=== PATIENT | female | born 1985 | race Caucasian/White ===

== ENCOUNTER 2016-09-28 05:39 | Emergency (ER) | payer OTHER ==
[~2016-09-28] VITALS: Ht 165.1 cm; Wt 47.7 kg
[~2016-09-28 05:39] MED LIST: ACYC400T2 PO; LORA1TAB PO; NORE1PAT7 TD; OXYC5TAB72 PO; PROM25TA14 PO; RIZA5TAB34 PO
[2016-09-28 05:41] VITALS: BP 122/79; PULSE 96; RESP 22
[2016-09-28] MEDS ORDERED: Ondansetron 2 mg/mL 2 mL Inj IVPUSH ONE (05:45)
[2016-09-28] MEDS ORDERED: Haloperidol 5 mg/mL Inj IVPUSH ONE (05:45)
[2016-09-28] MEDS ORDERED: 0.9% Sodium Chloride 1,000 ML IV ONE ×2 (05:45→06:35)
[2016-09-28] MEDS: Dexamethasone 10 mg/mL Inj IVPUSH ONE ×2 (06:03→06:45)
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
[2016-09-28 06:12] VITALS: PULSE 96; O2SAT 100
[2016-09-28] MEDS ORDERED: Promethazine Inj 50 MG in 0.9% Sodium Chloride-Pha MIX 100 ML IV ONE (06:30)
[2016-09-28] MEDS ORDERED: Acetaminophen IV 1,000 MG in IV Premix 1 EACH IV ONE (06:30)
[2016-09-28 08:03] VITALS: BP 100/58; PULSE 78
== END 2016-09-28 07:55 | disposition home or self-care (01) ==
LOC: SED 05:39
DX: G43.901 Migraine, unspecified, not intractable, with status migrainosus (principal); Z88.2 Allergy status to sulfonamides; Z88.8 Allergy status to other drugs, medicaments and biological substances
CPT/HCPCS: 82948; 96361; 96374; 96375; 99284; J0131; J1100; J1885; J2405; J7030

== ENCOUNTER 2016-12-15 16:29 | Inpatient (IN) | payer MEDICAID, OTHER ==
[~2016-12-15] VITALS: Ht 165.1 cm; Wt 47.0 kg
[~2016-12-15 16:29] MED LIST changes: +OXYC-530 PO; -OXYC5TAB72 PO
[2016-12-15 16:43] VITALS: BP 125/62; PULSE 81; RESP 18; O2SAT 100
[2016-12-15] MEDS ORDERED: LORazepam 2 mg Tablet ONE (17:40)
[2016-12-15] MEDS ORDERED: Haloperidol 5 mg/mL Inj IM ONE (17:55)
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
[2016-12-15 20:31] LABS: BASOPHILS % (AUTO) 0.1 % (0-3); EOSINOPHILS % (AUTO) 0.4 % (0-5); MONOCYTES % (AUTO) 8.5 % (4-12); Mean Corpuscular Hemoglobin 29.7 pg (27.0-35.0); Mean Corpuscular Volume 88.5 fL (81-100); NEUTROPHILS % (AUTO) 66.8 % (40-74); Platelet Count 235 bil/L (150-400)
[2016-12-15 21:21] LABS: APPEARANCE,URINE CLEAR (CLEAR,HAZY); COLOR,URINE YELLOW (YELLOW); OCCULT BLOOD,URINE NEGATIVE (NEGATIVE); UROBILINOGEN,URINE NORMAL (NORMAL)
[2016-12-15 22:19] VITALS: BP 100/69; PULSE 87; RESP 14; O2SAT 98
[2016-12-16 02:49] VITALS: BP 92/58; PULSE 78; RESP 12; O2SAT 97
[2016-12-16 06:46] VITALS: BP 102/60; PULSE 74; RESP 16; O2SAT 99
[2016-12-16] MEDS ORDERED: HYDROmorphone 0.5 mg/0.5 mL iSecure Syringe IVPUSH ONE (07:25)
[2016-12-16] MEDS ORDERED: Alum-Mag Hydrox-Simeth 30 mL Suspension PO ONE (07:25)
--- NOTE | 2016-12-16 08:14 | DRSVH ---
PROCEDURE: X-RAY CHEST ONE VIEW, PORTABLE ([id number]) INDICATIONS: altered mental status TECHNIQUE: One view of the chest was acquired. COMPARISON: [facility], , CHEST 1VW (PORTABLE), 11/29/2011, 10:31. FINDINGS: Surgical changes and devices: None. Lungs and pleura: No pleural effusions or pneumothorax. Lungs are clear. Mediastinum: Mediastinal contours appear normal. Heart size is normal. Bones and chest wall: No suspicious bony lesions. Overlying soft tissues appear unremarkable. IMPRESSION: No acute cardiopulmonary disease. Dictated by: Arabella Jarrell M.D. on 12/16/2016 at 8:12 Approved by: Arabella Jarrell M.D. on 12/16/2016 at 8:12
--- NOTE | 2016-12-16 08:44 | DRSVH ---
PROCEDURE: CT BRAIN WITHOUT CONTRAST ([id number]) INDICATIONS: altered mental status TECHNIQUE: Noncontrast 4.5 mm thick angled axial sections acquired from the foramen magnum to the vertex, with c oronal reformats. COMPARISON: [facility], CT, BRAIN W/O CONTRAST, 03/03/2013, 20:15. FINDINGS: Image quality: Excellent. CSF spaces: Basal cisterns are patent. No extra-axial fluid collections. Ventricles are normal in size and shape. Brain: No midline shift. No intracranial masses or hemorrhage. Das-white matter interface is norm al. Skull and face: Calvarium and visualized facial bones are intact, without suspicious lesions. Sinuses: Visualized sinuses and mastoids are clear. IMPRESSION: No acute intracranial adenopathy. No significant discrepancy with the night coordinator radiology preliminary report. Dictated by: Arabella Jarrell M.D. on 12/16/2016 at 8:42 Approved by: Arabella Jarrell M.D. on 12/16/2016 at 8:43
[2016-12-16] MEDS ORDERED: LEVE500T3 PO (10:06)
[2016-12-16] MEDS ORDERED: LEVO1TAB63 PO (10:06)
[2016-12-16] MEDS ORDERED: TRAZ-115 PO (10:06)
[2016-12-16] MEDS ORDERED: LORazepam 1 mg Tablet PO ONE (12:05)
[2016-12-16 14:35] VITALS: BP 113/68; PULSE 123; RESP 19; O2SAT 98
[2016-12-16] MEDS ORDERED: LORazepam 2 mg Tablet PO ONE (19:30)
[2016-12-16 21:34] VITALS: BP 111/68; PULSE 112; RESP 16; O2SAT 99
[2016-12-17 06:14] VITALS: BP 102/71; PULSE 88; RESP 20; O2SAT 98
[2016-12-17 12:28] VITALS: BP 117/85; PULSE 137; RESP 18; O2SAT 97
[2016-12-17] MEDS ORDERED: Phenytoin 100 mg ER Capsule PO ONE (12:35)
[2016-12-17 12:45] VITALS: PULSE 115; RESP 15; O2SAT 100
[2016-12-17] MEDS ORDERED: LORazepam 2 mg Tablet PO ONE (12:50)
[2016-12-17 13:02] VITALS: BP 117/85; PULSE 115; RESP 15; O2SAT 100
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
--- NOTE | 2016-12-17 17:40 | NUR ---
S Day Shift Pt admitted to the unit at approx 13:05. Pt unable to complete the admission process due to anxiety. Pt spends most of the shift isolating/resting in her room. Pt appears tearful, anxious. Pt more active on the unit in the evening, and appears slightly more interactive with staff and peers. Pt remains tearful and anxious throughout the shift. Pt has eaten approx 30% of dinner at this time (pt is in the process of eating at this time).
[2016-12-17] MEDS: LORazepam 1 mg Tablet PO PRN (20:05)
--- NOTE | 2016-12-17 20:54 | NUR ---
behavior/mood: pt. very tearful, crying asking if i talked to her mom, replied yes ans she would be back tomorrow to visit. Pt. given ativan and ambien, pt. came out of her room, drawing and eating a snack. mood still flat and depressed but pt. no longer crying, focused on drawing and writing in her journal.
[2016-12-18] MEDS: LORazepam 1 mg Tablet PO PRN ×2 (12:37→19:23)
[2016-12-18] MEDS ORDERED: Phenytoin 100 mg ER Capsule PO SCH (14:30)
--- NOTE | 2016-12-18 14:41 | NUR ---
Nursing 0700 to 1500 Sugar has been in her bed all shift except for meals and walking down the [place] to use the phone at 1230. She lies in bed with the pillow over her head. When approached by headline writer, she was compliant with taking pills as offered, with walking down [place] to lunch, but didn't verbalize anything to headline writer. She has a very distressed facial expression and appearance is unkempt. Sugar signed release of info form and headline writer listened to mom on phone. Mom told headline writer that Sugar was afraid that when anxious and fearful, Sugar doesn't talk. Sugar was offered and accepted Ativan 1 mg at 1230. At 1330, she did not answer when asked if it had been calming for her. A: Distressed. Mute at times. (Did talk to mother on phone and to [facility]), Anxious. ?Psychotic P: Continue to assess. Addendum: 12/18/16 at 1448 by DEVIKA COX RN Amended: Links added.
--- NOTE | 2016-12-18 15:13 | HP ---
[address] [address] HISTORY AND PHYSICAL PATIENT: ALANIS BECERRA : 1985 MR#: [id number] ADMIT: 12/17/2016 JOB ID: [id number] DATE OF SERVICE: 12/18/2016 IDENTIFICATION: The patient is a 31-year-old, white female with a history of anxiety, depression, psychosis and PTSD, who presented to the emergency department with her mother complaining of altered mental status. She was admitted on an involuntary basis for grave disability. HISTORY OF PRESENT ILLNESS: The patient presents today for evaluation and treatment of depression and altered mental status. I met with her for a 60-minute evaluation and reviewed course and records kept by [facility]. Client's main issue is major depression. Co-occurring issues are fairly significant marijuana habit, as well as two recent seizures on December 15, 2016. Per client's mother, she has had altered mental status for the past two weeks with poor sleep, interest, energy, poor appetite and a loss of 15 pounds. She has not been complaining of suicide or homicide but has been increasingly unable to attend to her ADLs and is tending to isolate in her room. She is tending to avoid talking or social situations. She is she is appearing highly agitated with exaggerated startle response and appears to be experiencing intrusive recall of previous trauma. Here on the unit, she has been intermittently tearful, labile, and agitated. Her thoughts are extremely disorganized and nonlinear. She is a very poor historian and responds mutely to most attempts to engage or establish dialogue. she did tell her mother that she was paranoid and feeling that people were trying to kill the family. Client has previous psychiatric admission here in 2011. Her presentation is almost identical and she was treated with a combination of Depakote, Thorazine, and Klonopin. She was in [facility] in 2009 for depression, and was transferred to [facility] after [facility] for continued six weeks of care. At that time, she had psychosis, auditory hallucinations, and paranoia. PAST MEDICAL HISTORY: MEDICATIONS: Client stopped all her meds. She was only on control pills. ALLERGIES: SULFA. ILLNESSES: Two seizures, December 15, 2016. This was per mother's report. Her mother reported that she has been acting unusual since the seizures. She was treated at [facility] for this seizure and was placed on Keppra. FAMILY MEDICAL HISTORY: Client is unable to respond. PAST PSYCHIATRIC HISTORY: Client had four different involuntary psychiatric admissions, first in 2009 at [facility], then [facility]. Most recently, [facility] 2011. When she came to the [facility] in 2011 she was on Xanax, Vicodin, and THC. PAST PSYCHOSOCIAL HISTORY: Client could not participate. She, in the past, has reported daily use of THC. PHYSICAL EXAM: Reviewed from ED and essentially normal. Vital signs within normal limits. LABS: CT December 16, negative. UA normal. UPT negative. Liver, electrolytes, thyroid normal. CBC normal. UDS positive for THC. MENTAL STATUS: Thin, frail. Poor eye contact. Disheveled. Behavior: Lethargic and withdrawn. Attitude: Aloof and detached. Speech: Mute or one-word, nearly unintelligible responses. Mood: Dysphoric, tearful. Affect: Labile, high intensity. Thought process: Unable to relate a coherent history. Does not appear to be responding to internal stimuli. Very concrete and restricted thought process, characteristics mostly for poverty of thought. Thought content: Poverty of thought. Refuses to answer questions about suicide or auditory hallucinations. Client refused to participate in orientation or cognitive exam. Insight and judgment markedly impaired. Impulse control: Highly contained yet unable to handle impulses of fear. Reality testing severely impaired. Competence to handle current stressors: Currently being overwhelmed. IMPRESSION: The patient is a 31-year-old, white female, who had has had four different inpatient admissions for depression and psychosis. Her presentation now is almost identical to her presentation in 2012, where she presented with psychotic symptoms, mute, and auditory hallucinations. She was given a diagnosis of posttraumatic stress disorder and major depression. I believe these are appropriate. She has stopped all medications and is in a severely labile state with disorganized and nonlinear thought. Client's SSI apparently was stopped for concern about seizures. I will restart her on Depakote, Klonopin, and Zyprexa. Will try to get more information about the seizure. I would like to restart an antidepressant, but concerned about potential seizure issues, and as the client cannot talk, will try to get a family meeting with the mother. I am unclear about client's past trauma history and client is unable to participate. Client will be encouraged to refrain from recreational drugs while taking psychiatric medications after discharge. DIAGNOSIS: [place] I. 1. Major depressive disorder with psychosis. 2. Posttraumatic stress disorder. 3. Cannabis abuse. [place] II. Defer. [place] III. Rule out recent seizure x2 reported by mother on December 15, 2016. [place] IV. Unknown. [place] V. 25 PLAN: Recommend client be admitted to our unit, be provided with a high degree of safety through the structure and safety she will be provided, as well as the active adult engagement. We will have her participate in one-to-one unit and group activities, hoping to improve coping skills, reality based thinking, and coming up with a treatment plan for after discharge. We will start the client on Zyprexa 5 h.s., Klonopin 0.5 b.i.d., and Depakote ER 500 h.s. Will continue trazodone at 50 h.s. and consider reinstitution of Prozac, once I can get more information about recent reported seizures. Client is on 72-hour involuntary treatment hold. Will go to court on Sunday for a 14-day MR most likely.
--- NOTE | 2016-12-18 15:24 | NUR ---
Telephone Directory Deliverer/Counselor S/O: Patient did not verbally respond to this underwriter mortgage loan, and was tearful and unresponsive when spoken to. A: Patient has kept to her room for most of the day. P: Follow care plan and coordinate with outpatient providers.
--- NOTE | 2016-12-18 18:36 | NUR ---
Obs Dayshift Pt spent most of the day in bed, only getting up for a phone to call mom or meals. Pt is very tearful, anxious. Appears very fearful, sad. Pt is talking very little, and perseveration. Pt did sign an MARNIE for mom, who states that pt will cheek meds. Pt is polite, and often found crying in bed under her blankets. Ok ADL's, Good meals
[2016-12-18] MEDS: Divalproex (QD) 500 mg ER24 Tablet PO SCH (20:47)
--- NOTE | 2016-12-18 23:00 | NUR ---
NURSING NOTE [id number] Mood: "I feel so alone" *cries* Affect: tearful, anxious, despondent Behavior: pt. mostly isolating to room this shift but did come out for brief periods to sit and watch TV or sit at the table in the DR. Minimal interaction w/peers. Often crying in her room. Pt. given much reassurance from staff this evening. Pt. expressed she feels that her loved ones have lost trust in her and that they are disappointed in her. Thought processes: fearful; pt. expressing she is "terrified" about things at home but unable to articulate to this keno writer/runner what she is fearful of except to say "if roles were reversed you would be scared too". Shook her head when asked if she was suicidal. Did not answer when asked about AH/VH.
--- NOTE | 2016-12-19 05:48 | NUR ---
Nursing Note Carpentry Specialist 11pm to 7am Pt asleep at start of shift, was found in her bathroom at approx. 0315 crying and reported to staff that she was scared because she is having trouble making decisions and feels confused. Pt able to work through this and go back to sleep without further intervention Monitored pt with 15 minute face checks for safety, location and accountability
[2016-12-19] MEDS ORDERED: ETHINYL ESTRADIOL PO SCH (08:30)
[2016-12-19] MEDS ORDERED: LEVONORGESTREL PO SCH (08:30)
--- NOTE | 2016-12-19 12:19 | PCM.PNPSY ---
Subjective Date of Service Dec 19, 2016 Subjective I spent 30 minutes both reviewing treatment plan with our clinical team, interviewing the patient and providing supportive/educational psychotherapy. I spent more than 50% of the time counseling the patient. I reviewed the treatment plan with the patient and discussed options available including the potential risks, benefits and side effects. Sugar reports a continued struggle to maintain thought organization and mood stability. Staff reports that she has been isolating and participating poorly in one-to-one unit and group activities. She slept 9 hours and responds to all my questions with a mute blank stare about depression [place] or psychosis or symptoms review. She denies medication side effects. She was not able to identify her medications and what they were used to treat. Current Medications Current Medications Clonazepam 0.5 mg BID PO Last administered on 12/19/16 09:23; Admin Dose 0.5 MG ; Start 12/18/16 at 12:55 Divalproex Sodium 500 mg Q24@2030 PO Last administered on 12/18/16 20:47; Admin Dose 500 MG; Start 12/18/16 at 20:30 Fluoxetine HCl 20 mg DAILY PO Last administered on 12/18/16 13:55; Admin Dose 20 MG; Start 12/18/16 at 13:55; Stop 12/18/16 at 14:04; Status DC Lorazepam 1-2MG Q4 PRN PO Last administered on 12/18/16 19:23; Admin Dose 1 MG ; Start 12/17/16 at 19:45 Lorazepam 2 mg ONCE ONCE PO Last administered on 12/17/16 12:56; Admin Dose 2 MG; Start 12/17/16 at 12:50; Stop 12/17/16 at 12:51; Status DC Olanzapine 5 mg DAILY@2030 PO Last administered on 12/18/16 20:47; Admin Dose 5 MG; Start 12/18/16 at 20:30 Phenytoin 300 mg ONCE ONCE PO Last administered on 12/17/16 12:56; Admin Dose 300 MG; Start 12/17/16 at 12:35; Stop 12/17/16 at 12:36; Status DC Trazodone HCl 50 mg HS PO Last administered on 12/18/16 20:47; Admin Dose 50 MG ; Start 12/18/16 at 21:00 Zolpidem Tartrate 10 mg HS PO Last administered on 12/18/16t 20:47; Admin Dose 10 MG; Start 12/17/16 at 21:00 Mental Status Exam Appearance: Unkept, Disheveled Attitude: Other (mute) Affect: Restricted, Labile Mood: Dysthymic, Fearful Thought Process/Associations: Other (poverty of thought) Speech Production: Mumbled, Muter Thought Content: Perseveration Consciousness: Lethargic Orientation: Unable to assess Memory: Untestable Estimate Intellectual Function: Unable to assess Attention/Concentration & Cogn: Unable to assess Insight: Unable to assess Judgement: Unable to assess Result Diagram: 12/15/16202412/15/162024 Mental Health Plan The patient is a 31-year-old, white female, who had has had four different inpatient admissions for depression and psychosis. Her presentation now is almost identical to her presentation in 2011, where she presented with psychotic symptoms, mute, and auditory hallucinations. She was given a diagnosis of posttraumatic stress disorder and major depression. I believe these are appropriate. She has stopped all medications and is in a severely labile state with disorganized and nonlinear thought. Client's SSRI apparently was stopped for concern about seizures. I will restart her on Depakote, Klonopin, and Zyprexa. Will try to get more information about the seizure. I would like to restart an antidepressant, but concerned about potential seizure issues, and as the client cannot talk, will try to get a family meeting with the mother. I am unclear about client's past trauma history and client is unable to participate in the history process At this time. [place] I. 1. Major depressive disorder with psychosis. 2. Posttraumatic stress disorder. 3. Cannabis abuse. [place] II. Defer. [place] III. Rule out recent seizure x2 reported by mother on December 15, 2016. [place] IV. Unknown. [place] V. 25 Treatments Patient is being provided with a high degree of safety through our unit structure and active adult engagement provided by our mental health professionals, mental health technicians, psychiatric nurses and myself. We are focusing on developing improved coping skills and identifying stressors that may have led to current episode. We will attempt to: * Integrate into therapeutic groups, milieu and individual therapy. * Maintain in a closely monitored and structured unit * Provide low-stimulation environment * Obtain collateral data to assist in treatment planning * Assess degree of lability of affect and impulse control * Complete safety plan * Decrease frequency of relapse and need for re-hospitalization * Denies thoughts of harm to self and/or others * Establish a consistent sleep pattern * Medication effective in stabilization of mood and/or thought process * Reduce the risk of imminent harm to self and/or others by providing a safe environment * Tolerates medication without side effects Patient will be on the following psychiatric medications: PLAN: Zyprexa 5 h.s., Klonopin 0.5 b.i.d. Depakote ER 500 h.s. Trazodone at 50 h.s. Consider reinstitution of Prozac, once I can get more information about recent reported seizures. Education: Educate patient about recreational drug use as an etiology Educate about metabolic etiologies related to obesity Patient's legal status Patient is on a 72 involuntary treatment hold. Patient will be given the opportunity to talk to her rand sewer and the juvenile court judge Anticipated number of hospital days to achieve above goals:10 Disposition: Home Lior Velarde MD Dec 19, 2016 12:19
[2016-12-19 12:26] VITALS: BP 131/68; PULSE 92; RESP 16
--- NOTE | 2016-12-19 14:13 | NUR ---
Temperature Inspector/Counselor S/O: Patient does not respond verbally to questions and remains mute. Stares blankly. A: Patient has remained in her bed for most of the day. No interactions with other patients or staff. P: Follow care plan and coordinate with outpatient providers.
--- NOTE | 2016-12-19 14:26 | NUR ---
Nursing 7a-3p Pt resting in bed until mid morning looking tense/anxious/tearful. Delayed response, vague speech, frightened look. She took her morning medication with encouragement afterwards she did get up and ate some of her breakfast. She talked with her mother on the phone briefly. Pt spent the majority of the shift resting in bed covered using her blanket and pillow to cover her ears and head. No self harm statements or behavior. Cooperative with care. Pt having difficulty articulating her feelings or needs.
[2016-12-19] MEDS: LORazepam 1 mg Tablet PO PRN (15:44)
--- NOTE | 2016-12-19 16:06 | NUR ---
Obs Dayshift Pt continues to talk very little, perseveration, anxiety, scared. Pt is very tearful, in bed w/ blankets over her head most of the day. Pt does get up for meals, and phone calls to mom. Pt is polite, does request meds appropriately, does not engage w/ peers and very little w/ staff. Not able to participate in any activity on the unit. Ok ADL's, Ok/Good meals
[2016-12-19] MEDS: Divalproex (QD) 500 mg ER24 Tablet PO SCH (20:34)
--- NOTE | 2016-12-19 22:03 | NUR ---
NURSING NOTE [id number] Mood: "I... don't know" *begins to cry* Affect: distraught, frightened, tearful at times Behavior: pt. isolated to room for much of the shift but did come out a few times to watch TV, eat meals, and to visit w/her mother. On occasion she would hover by the NS or med room appearing lost and unable to state her needs to staff. Pt. given 1 mg Ativan PRN for anxiety @ 15:40 Thought processes: pt. is mostly restricted in her responses; staring at this assembly instructions writer and unable to answer most questions. Pt. unable to confirm or deny suicidality/AH/VH. Appears profoundly depressed and paranoid.
--- NOTE | 2016-12-20 05:46 | NUR ---
Nursing Note Superintendent [employer] 11pm-7am Patient was in bed at start of shift. She was noted to be in bed asleep at 2245 remains asleep at current time with 7.25+ hours. Pt monitored q 15 minutes for safety, location and accountability.
--- NOTE | 2016-12-20 11:24 | NUR ---
Nursing: Pt continues extremely anxious, lost, scared. She was out for snacks and had a visit from her mom who was in court with her, where she was given up to 14 day hold. It was very difficult to for her to let her mother go. She is not willing to engage at this time.Still mostly isolating in her room in bed buried under her blanket. Ate 25 % of both meals.
[2016-12-20 12:26] VITALS: BP 107/76; PULSE 89
--- NOTE | 2016-12-20 13:27 | PCM.PNPSY ---
Subjective Date of Service Dec 20, 2016 Subjective I spent 60 minutes both reviewing treatment plan with our clinical team, interviewing the patient and providing supportive/educational psychotherapy. I spent more than 50% of the time counseling the patient. I reviewed the treatment plan with the patient and discussed options available including the potential risks, benefits and side effects. I prepared and testified in court for 14 day SATS [place] continues to struggle to maintain thought organization and mood stability. Staff reports that she has been isolating and participating poorly in one-to- one unit and group activities. She slept 7 hours and responds to all my questions with a mute blank stare about depression [place] or psychosis or symptoms review. She denies medication side effects. She was not able to identify her medications and what they were used to treat. Current Medications Current Medications Divalproex Sodium 500 mg Q24@2030 PO Last administered on 12/19/16 20:34; Admin Dose 500 MG; Start 12/18/16 at 20:30 Fluoxetine HCl 20 mg DAILY PO Last administered on 12/18/16 13:55; Admin Dose 20 MG; Start 12/18/16 at 13:55; Stop 12/18/16 at 14:04; Status DC Olanzapine 5 mg DAILY@2030 PO Last administered on 12/19/16 20:34; Admin Dose 5 MG; Start 12/18/16 at 20:30 Trazodone HCl 50 mg HS PO Last administered on 12/19/16 20:34; Admin Dose 50 MG ; Start 12/18/16 at 21:00 Mental Status Exam Vital Signs Vital Signs Date Time Temp Pulse Resp B/P Pulse Ox O2 Delivery O2 Flow Rate FiO2 12/20/16 12:26 36.3 89 107/76 Appearance: Unkept, Disheveled Attitude: Other (mute) Affect: Restricted, Labile Mood: Dysthymic, Fearful Thought Process/Associations: Other (poverty of thought) Speech Production: Mumbled, Muter Thought Content: Perseveration Consciousness: Lethargic Orientation: Unable to assess Memory: Untestable Estimate Intellectual Function: Unable to assess Attention/Concentration & Cogn: Unable to assess Insight: Unable to assess Judgement: Unable to assess Result Diagram: 12/15/16202412/15/162024 Mental Health Plan The patient is a 31-year-old, white female, who had has had four different inpatient admissions for depression and psychosis. Her presentation now is almost identical to her presentation in 2012, where she presented with psychotic symptoms, mute, and auditory hallucinations. She was given a diagnosis of posttraumatic stress disorder and major depression. I believe these are appropriate. She had stopped all medications and was in a severely labile state with disorganized and nonlinear thought. Client's SSRI apparently was stopped for concern about seizures. She has been restarted her on Depakote, Klonopin, and Zyprexa. The reported seizure was by mom 2 days captain [employer]. A neurology consult MRI and CT were done at [facility] and recommended keppra and outpt f/u. She could not tolerate keppra and is currently on depakote w/ no szs activity since admission. I am unclear about client's past trauma history and client is unable to participate in the history process, our casemanager will contact mother for more history. [place] I. 1. Major depressive disorder with psychosis. 2. Posttraumatic stress disorder. 3. Cannabis abuse. [place] II. Defer. [place] III. Rule out recent seizure x2 reported by mother on December 15, 2016. [place] IV. Unknown. [place] V. 25 Treatments Patient is being provided with a high degree of safety through our unit structure and active adult engagement provided by our mental health professionals, mental health technicians, psychiatric nurses and myself. We are focusing on developing improved coping skills and identifying stressors that may have led to current episode. We will attempt to: * Integrate into therapeutic groups, milieu and individual therapy. * Maintain in a closely monitored and structured unit * Provide low-stimulation environment * Obtain collateral data to assist in treatment planning * Assess degree of lability of affect and impulse control * Complete safety plan * Decrease frequency of relapse and need for re-hospitalization * Denies thoughts of harm to self and/or others * Establish a consistent sleep pattern * Medication effective in stabilization of mood and/or thought process * Reduce the risk of imminent harm to self and/or others by providing a safe environment * Tolerates medication without side effects * Patient will be on the following psychiatric medications: Zyprexa 5 h.s., Klonopin 0.5 b.i.d. Depakote ER 500 h.s. Trazodone at 50 h.s. Consider reinstitution of Prozac, once I can get more information about recent reported seizures. Education: Educate patient about recreational drug use as an etiology Educate about metabolic etiologies related to obesity Patient's legal status Patient is on a 14 day MR involuntary treatment hold filed 12/20/16 Anticipated number of hospital days to achieve above goals:10 Disposition: Home Lior Velarde MD Dec 20, 2016 13:27 Lior Velarde MD Dec 20, 2016 13:27
--- NOTE | 2016-12-20 17:21 | NUR ---
Observations 0700 - 1900 Pt affect and mood was anxious, flat, emotional, lost, sullen and isolative. Pt was in her room and in bed most of the shift. Pt was pleasant, polite and cooperative when approached but very timid. Pt maintained behavior throughout the shift. Pt continues to be unsocial and keeps to herself when out of her room. Pt attended meals in D.R. and ate 25% of breakfast, 25% of lunch and 100% of dinner. Pt ate a snack. Pt had court and visited with mom for about 15 minutes afterwards. Pt Pt was observed every 15 minutes through the shift as ordered.
--- NOTE | 2016-12-20 18:58 | NUR ---
NURSING NOTE [id number] Mood: "I don't know" Affect: tearful, fearful Behavior: pt. visible off and on in milieu, sitting w/peers but not interacting w/them, has a fixed look of despair on her face, visited w/her mother. Ate 100% of dinner. Thought processes: pt. is mostly mute and restricted when this promotion writer assessed her; pt. unable to answer to whether she has AH/VH. Pt. shrugged and shook her head when asked if she has SI. Very anxious and becomes increasingly anxious when confronted w/questions. Addendum: 12/20/16 at 2024 by NANO COVARRUBIAS RN At HS med pass, the pt. required much reassurance to take her PO meds. Once she finally placed them in her mouth, it was apparent that she hadn't yet swallowed and pt. tried to walk away from this promotion writer when this promotion writer asked to see her mouth and continued to walk in circles around the unit trying to get away from this promotion writer and hiding the pills in her mouth. After 5 mins of following the pt. to ensure she did not spit them out, the pt. began to gag and drank a sip of water and swallowed them all, and opened her mouth to show she had indeed swallowed them. Pt's room will be locked for 45 mins to ensure she does not induce emesis. Addendum: 12/20/16 at 2126 by NANO COVARRUBIAS RN At 2100 the pt. was discovered hiding on the floor behind a chair in the [facility]FANS room with the lights off. She was crying and rambling, talking about the fact that she believes medications are "not healthy for my body", that "my door was locked and you are punishing me" and "my family hates me" and "I'm a fucking idiot, I'm dog shit" and also rambled about politics and "people in power". Took much reassurance and coaxing to get pt. to get up off the floor and walk back to her room. Will continue to monitor.
[2016-12-20] MEDS: Divalproex (QD) 500 mg ER24 Tablet PO SCH (20:30)
[2016-12-21 08:30] VITALS: BP 109/80; PULSE 96; RESP 18
[2016-12-21] MEDS: LORazepam 1 mg Tablet PO PRN ×2 (11:12→16:53)
--- NOTE | 2016-12-21 13:42 | PCM.PNPSY ---
Subjective Date of Service Dec 21, 2016 Subjective I spent 20 minutes both reviewing treatment plan with our clinical team, interviewing the patient and providing supportive/educational psychotherapy. I spent less than 50% of the time counseling the patient. I reviewed the treatment plan with the patient and discussed options available including the potential risks, benefits and side effects. Sugar continues to struggle to maintain thought organization and mood stability. Staff reports that she has been isolating and participating poorly in one-to- one unit and group activities. She slept 9 hours and responds to all my questions with a mute blank stare about depression l[place] or psychosis or symptoms review. She denies medication side effects. Mental Status Exam Vital Signs Vital Signs Date Time Temp Pulse Resp B/P Pulse Ox O2 Delivery O2 Flow Rate FiO2 12/21/16 08:30 36.0 96 18 109/80 Appearance: Unkept, Disheveled Attitude: Other (mute) Affect: Restricted, Labile Mood: Dysthymic, Fearful Thought Process/Associations: Other (poverty of thought) Speech Production: Mumbled, Muter Thought Content: Perseveration Consciousness: Lethargic Orientation: Unable to assess Memory: Untestable Estimate Intellectual Function: Unable to assess Attention/Concentration & Cogn: Unable to assess Insight: Unable to assess Judgement: Unable to assess Result Diagram: 12/15/16202412/15/162024 Mental Health Plan The patient is a 31-year-old, white female, who had has had four different inpatient admissions for depression and psychosis. Her presentation now is almost identical to her presentation in 2011, where she presented with psychotic symptoms, mute, and auditory hallucinations. She was given a diagnosis of posttraumatic stress disorder and major depression. I believe these are appropriate. She had stopped all medications and was in a severely labile state with disorganized and nonlinear thought. Client's SSRI apparently was stopped for concern about seizures. She has been restarted her on Depakote, Klonopin, and Zyprexa. 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 A neurology consult MRI and CT were done at [facility] and recommended keppra and outpt f/u. She could not tolerate keppra and is currently on depakote w/ no szs activity since admission. After reviewing her hospitalization and seizure workup [place] and talking to her mother About her state of dehydration emaciation and lack of sleep no longer believe that An SSRI is contraindicated. I am restarting Prozac 20 mg per day. I am unclear about client's past trauma history and client is unable to participate in the history process, our casemanager will contact mother for more history. Columbia Columbia I. 1. Major depressive disorder with psychosis. 2. Posttraumatic stress disorder. 3. Cannabis abuse. Columbia II. Defer. Columbia III. Rule out recent seizure x2 reported by mother on December 15, 2016. Columbia IV. Unknown. Columbia V. 25 Treatments Patient is being provided with a high degree of safety through our unit structure and active adult engagement provided by our mental health professionals, mental health technicians, psychiatric nurses and myself. We are focusing on developing improved coping skills and identifying stressors that may have led to current episode. We will attempt to: * Integrate into therapeutic groups, milieu and individual therapy. * Maintain in a closely monitored and structured unit * Provide low-stimulation environment * Obtain collateral data to assist in treatment planning * Assess degree of lability of affect and impulse control * Complete safety plan * Decrease frequency of relapse and need for re-hospitalization * Denies thoughts of harm to self and/or others * Establish a consistent sleep pattern * Medication effective in stabilization of mood and/or thought process * Reduce the risk of imminent harm to self and/or others by providing a safe environment * Tolerates medication without side effects * Patient will be on the following psychiatric medications: Start Prozac 20 mg every morning Zyprexa 5 h.s., Klonopin 0.5 b.i.d. Depakote ER 500 h.s. Trazodone at 50 h.s. Patient's legal status Patient is on a 14 day involuntary treatment hold filed 12/20/16 Anticipated number of hospital days to achieve above goals:10 Disposition: Home Lior Velarde MD Dec 21, 2016 13:42
--- NOTE | 2016-12-21 14:41 | NUR ---
NURSE NOTE DAY Mood: Unable to assess. Pt unable to answer questions at this time. Affect: Anxious, tearful at times. Thought Process/Content: Paucity of speech. Unable to confirm or deny SI, HI; AH,VH. Behavior: Up for breakfast. On phone with mother in morning, appeared anxious after. PRN/NURS: Eating meals. PRN lorazepam around 1000.
--- NOTE | 2016-12-21 16:00 | NUR ---
Observations 0700 to 1900 Pt did not attend community meeting. Pt did not attend recreational activities. Pt ate a snack. Pt showered. Pt is observed using the phone much of time. Pt appears highly anxious and has a constant tortured look on face and appears internally preoccupied. Pt maintained behavioral control. Breakfast: 75%. Lunch: 100%. Staff completed 15 min close observations as ordered. Addendum: 12/21/16 at 1824 by [facility] This typewriter mechanic observed pt crying. Met with pt in room in which pt disclosed suicidal ideation "I should have done it along time ago, everyone would be happy. I know what I need to do." Pt also discussed painful memories of being bullied in grade school, feelings of fear and pressure by advent. "Are you ? In your denomination is your able to have more than one ?" Pt's bizarre statements were verbally reported to pt's RN.
--- NOTE | 2016-12-21 17:48 | NUR ---
Transition Assistant/Counselor: S/O: Patient slept 8.25 hours last night per staff. Patient was mute during the interview and would not speak. A: Patient is uncooperative, unkept, labile, restricted affect, fearful, lethargic, unable to assess insight and judgment. P: Follow the care plan, coordinate with out-patient providers, monitor behavior.
[2016-12-21] MEDS: Divalproex (QD) 500 mg ER24 Tablet PO SCH (21:01)
--- NOTE | 2016-12-21 23:02 | NUR ---
NURSE NOTE EVENING SHIFT [id number]: Pt has mostly been in her room during the shift, coming out to color and eat dinner. Pt has been tearful and sullen and given PRN Ativan about 1700, but continued to be tearful. Pt appeared to enjoy her mother visiting. Pt went back to her room and spent most of the evening there. Pt questioned if she really needed her HS meds but took them after talking with staff. Pt monitored q15 min. for safety, location and accountability.
--- NOTE | 2016-12-22 04:04 | NUR ---
nursing, nights, 11-7 s/o- has appeared to sleep after 2200 during q 15 minute assessments. a- no apparent distress. p- monitor behavior/emotional state, quality, times and amount of sleep, use and effect of medication. kimberlee
[2016-12-22 11:02] VITALS: BP 106/76; PULSE 83; RESP 16
--- NOTE | 2016-12-22 12:37 | PCM.PNPSY ---
Subjective Date of Service Dec 22, 2016 Subjective I spent 30 minutes both reviewing treatment plan with our clinical team, interviewing the patient and providing supportive/educational psychotherapy. I spent more than 50% of the time counseling the patient as today she was able to tolerate my interview. She was able to respond with normal speech and articulation. I reviewed the treatment plan with the patient and discussed options available including the potential risks, benefits and side effects. Sugar continues to struggle to maintain thought organization and mood stability. Staff reports that she continues to isolate and is participating poorly in one -to-one unit and group activities. She slept 8hours and is now responding to my questions with appropriate responses. She reports having severe dysphoria but denied auditory hallucinations. She states she continues to feel highly anxious and somewhat confused. She denies medication side effects Current Medications Current Medications Fluoxetine HCl 20 mg DAILY PO Last administered on 12/22/16t 09:13; Admin Dose 20 MG; Start 12/22/16 at 08:30 Mental Status Exam Appearance: Unkept, Disheveled Attitude: Cooperative Affect: Restricted, Labile Mood: Dysthymic, Fearful Thought Process/Associations: Other (poverty of thought) Speech Production: Soft, Mumbled Speech Rate: Lags/Latency Thought Content: Perseveration Consciousness: Lethargic Orientation: Unable to assess Memory: Untestable Estimate Intellectual Function: Unable to assess Attention/Concentration & Cogn: Impaired Cognitive Testing Method: Abstract Reasoning during interview, Proverb interpretation, Serial computations, Spelling forward & backward Insight: Limited Judgement: Limited Mental Health Plan The patient is a 31-year-old, white female, who had has had four different inpatient admissions for depression and psychosis. Her presentation now is almost identical to her presentation in 2012, where she presented with psychotic symptoms, mute, and auditory hallucinations. She was given a diagnosis of posttraumatic stress disorder and major depression. I believe these are appropriate. She had stopped all medications and was in a severely labile state with disorganized and nonlinear thought. Client's SSRI apparently was stopped for concern about seizures. She was initially restarted on Depakote, Klonopin, and Zyprexa. The reported seizure was by mom 2 days group captain. A neurology consult MRI and CT were done at [facility] and recommended keppra and outpt f/u. She could not tolerate keppra and is currently on depakote w/ no szs activity since admission. After reviewing her hospitalization and seizure workup [place] and talking to her mother About her state of dehydration emaciation and lack of sleep I no longer believe that an SSRI is contraindicated. I placed her on Prozac 20 mg per day 12/21/2016. Franklin Franklin I. 1. Major depressive disorder with psychosis. 2. Posttraumatic stress disorder. 3. Cannabis abuse. Franklin II. Defer. Franklin III. Rule out recent seizure x2 reported by mother on December 15, 2016. Franklin IV. Unknown. Franklin V. 30 Treatments Patient is being provided with a high degree of safety through our unit structure and active adult engagement provided by our mental health professionals, mental health technicians, psychiatric nurses and myself. We are focusing on developing improved coping skills and identifying stressors that may have led to current episode. We will attempt to: * Integrate into therapeutic groups, milieu and individual therapy. * Maintain in a closely monitored and structured unit * Provide low-stimulation environment * Obtain collateral data to assist in treatment planning * Assess degree of lability of affect and impulse control * Complete safety plan * Decrease frequency of relapse and need for re-hospitalization * Denies thoughts of harm to self and/or others * Establish a consistent sleep pattern * Medication effective in stabilization of mood and/or thought process * Reduce the risk of imminent harm to self and/or others by providing a safe environment * Tolerates medication without side effects * Patient will be on the following psychiatric medications: Prozac 20 mg every morning Zyprexa 5 h.s., Klonopin 0.5 b.i.d. Depakote ER 500 h.s. Trazodone at 50 h.s. Patient's legal status Patient is on a 14 day involuntary treatment hold filed 12/20/16 Anticipated number of additional hospital days to achieve above goals: Patient will likely need another week to maintain gains and set up appropriate treatment Disposition: Lior Salinas MD Dec 22, 2016 12:37
[2016-12-22] MEDS: LORazepam 1 mg Tablet PO PRN (15:26)
--- NOTE | 2016-12-22 16:02 | NUR ---
Observations 0700 - 1900 Pt affect and mood was anxious, flat, emotional, lost, sullen and isolative. Pt was in her room and in bed most of the morning. Pt was pleasant, polite and cooperative when approached but very timid. Pt was tearful most of the day and would pairer substandard the hallway. Pt maintained behavior throughout the shift. Pt continues to be unsocial and keeps to herself when out of her room. Pt took a shower. Pt attended meals in [facility]. and ate 50% of breakfast, 75% of lunch. Pt ate a snack. Pt was observed every 15 minutes through the shift as ordered.
--- NOTE | 2016-12-22 18:40 | NUR ---
Nursing Notes [id number] S: "The staff already knows I am stupid". "Nothing you can do will help". O: Patient tearful and crying. Kept refusing medications for anxiety, finally agreed to take. Refused to talk to staff. Would not rate anxiety/depression/hallucinations or suicidal/homicidal ideation. A: Emotionally labile and tearful, sobbing at times. Appears to be frightened or paranoid. P: Monitor for safety and response to treatment. Follow plan of care.
--- NOTE | 2016-12-22 19:52 | NUR ---
Snath Handle Assembler/Counselor: S: "I;m just resting." O: Patient slept 8 hours last night per staff. Patient was awake and answering questions during interview. She denies S/I and H/I. She also denies auditory and visual hallucinations. A: Patient is cooperative, unkept, disheveled, restricted affect, labile, fearful, lethargic, limited insight, limited judgment. P: Follow the care plan, coordinate with out-patient providers.
[2016-12-22] MEDS: Divalproex (QD) 500 mg ER24 Tablet PO SCH (20:34)
--- NOTE | 2016-12-23 06:36 | NUR ---
Nursing Note Education Administrator 7pm to 7am Pt tearful from 7pm-11pm. Pt was guarded on approach, unwilling to process other than to say I am worried about my famiy . Reports depression and anxiety but when asked to rate replied I dont know. Pt denies AVH or SI. Took HS meds and went to sleep at 2200. Pt slept 8 hours. Monitor with q 15 minute face checks for safety, location and accountability
[2016-12-23 09:30] VITALS: BP 108/72; PULSE 92; RESP 16
--- NOTE | 2016-12-23 15:02 | PCM.PNPSY ---
Subjective Date of Service Dec 23, 2016 Subjective The patient reportedly has been only minimally interactive with staff but has been talking more. Today she states, "I am okay I guess." She appears anxious but only states she is feeling "a little bit anxious." We discussed whether she felt restarting fluoxetine was a good or bad idea but the patient had no response. The patient also discussed having the 20 pound weight loss prior to admission but could not say over a long period of time. She denied having any concerns about her body appearing abnormally overweight (patient is quite thin) . We discussed the need for follow-up lab work in the morning to assess her Depakote level. Sleep: 8 hours Appetite: "Trying to eat better." Suicidal and homicidal ideation: Denies Auditory hallucinations/Visual hallucinations: Denies Other Psychotic Symptoms: Social isolation, apparent thought blocking Anxiety: "A little bit" Depression: "Some" Current Medications Current Medications Fluoxetine HCl 20 mg DAILY PO Last administered on 12/23/16t 09:28; Admin Dose 20 MG; Start 12/22/16 at 08:30 Mental Status Exam Vital Signs Vital Signs Date Time Temp Pulse Resp B/P Pulse Ox O2 Delivery O2 Flow Rate FiO2 12/23/16 09:30 36.2 92 16 108/72 Appearance: Unkept Attitude: Cooperative, Guarded Behavior: Overtly anxious Affect: Restricted Mood: Dysthymic, Fearful Thought Process/Associations: Other (poverty of speech) Speech Production: Soft, Mumbled Speech Rate: Lags/Latency Speech Articulation: Other (mild dysarthria) Thought Content: Perseveration Danger to Self/Suicidal Ideati: None Danger to Others: None Hallucinations: Auditory (Denies), Visual (Denies) Consciousness: Lethargic Orientation: Person, Place, Situation Memory: Short Term Memory (Impaired) Estimate Intellectual Function: Average Basis for IQ estimate: Word use/vocabulary, Educational history Attention/Concentration & Cogn: Impaired Insight: Limited Judgement: Limited Mental Health Plan The patient is a 31-year-old, with four prior inpatient hospitalizations for depression and psychosis. Her current presentation is similar to her presentation in 2011, where she presented as mute and with auditory hallucinations. She has a prior diagnosis of posttraumatic stress disorder and major depression. At the time of admission, the patient had stopped all medications and was labile with disorganized thoughts. Client's SSRI apparently was stopped for concern about seizures. There was a report of a seizure 2 days prior to admission. The patient had a neurology consult, MRI, and CT scan at [facility] and was recommended to start Keppra however she could not tolerate this medication and was placed on Depakote. She has remained seizure-free period. The patient was restarted She was initially restarted on fluoxetine 20 mg daily with olanzapine 5 mg nightly and clonazepam 0.5 mg twice daily and appears to be slowly responding to treatment. Sharon Sharon I. 1. Major depressive disorder with psychosis. 2. Posttraumatic stress disorder. 3. Cannabis use disorder Sharon II. Defer. Sharon III. Rule out recent seizure x2 reported by mother on December 15, 2016. Sharon IV. Unknown. Sharon V. GAF 35 Medications Prozac 20 mg daily Zyprexa 5 nightly Klonopin 0.5 b.i.d. Depakote ER 500 nightly Trazodone at 50 nightly Treatments 1. The patient is admitted to the inpatient unit and will be provided a safe and secure environment. 2. The patient is denying current active suicidality and is not in need of a one-to-one at this time. 3. The patient is encouraged to participate with group and milieu activities. 4. The patient will be seen by the treatment team on a daily basis to assess symptoms, side effects and response to treatment. 5. Continue current medications 6. Check valproic acid CBC, CMP in a.m. and adjust accordingly. 7. Consider increase of olanzapine if no further improvement. 8. Anticipated length of stay is 7-10 days. Dave Esparza MD Dec 23, 2016 15:02 * Tolerates medication without side effects * Patient will be on the following psychiatric medications: Prozac 20 mg every morning Zyprexa 5 h.s., Klonopin 0.5 b.i.d. Depakote ER 500 h.s. Trazodone at 50 h.s. Patient's legal status Patient is on a 14 day MR involuntary treatment hold filed 12/20/16 Anticipated number of additional hospital days to achieve above goals: Patient will likely need another week to maintain gains and set up appropriate treatment Disposition: Home Dave Esparza MD Dec 23, 2016 15:02
--- NOTE | 2016-12-23 15:29 | NUR ---
Observations 0900 to 2130 Pt ate a snack. Pt ate 50% of breakfast and 75% of lunch. Pt has isolated to room where she has used the phone or appeared asleep. Pt is not observed interacting with peers. Pt has a flat affect with a look of pain. Pt has not been tearful this shift. Pt maintained behavioral control. Pt respirations were observed when asleep. Staff completed 15 min close observations as ordered.
[2016-12-23] MEDS: LORazepam 1 mg Tablet PO PRN (16:30)
[2016-12-23] MEDS: diphenhydrAMINE 25 mg Capsule PO PRN ×2 (16:32→20:27)
--- NOTE | 2016-12-23 18:20 | NUR ---
Nursing Notes [id number] S: "I am really itchy right now". O: Patient scratching: neck, face and arms. Unable to determine the cause. Patient talking to mom on the phone, but mostly refusing to interact with staff-at one time, in room with blankets over her head. Unwilling to answer questions. Continues to appear frightened. Calls mom with needs, mother then calls staff, but patient will rarely come to staff. A: Anxious, tearful, and labile. Isolating in room. P: Monitor for safety and response to treatment. Follow plan of care. Addendum: 12/23/16 at 1820 by COLLIN FLANNERY RN PRNs Ativan 2 mg po for anxiety-patient unable to rate. Benadryl 50 mg po for itching.
[2016-12-23] MEDS: Divalproex (QD) 500 mg ER24 Tablet PO SCH (20:27)
--- NOTE | 2016-12-24 04:49 | NUR ---
Nursing Note Hand Zipper Trimmer 7pm to 7am Pt pleasant clam and cooperative, no tearfulness noted this shift however pt. remains downcast with low energy, isolated. Reported pt. wanting to be with her family I am worried about them. Pt denies SI but admits to feeling hopeless and helpless. Pt took HS meds and slept through the night. Monitored pt with q 15 minute face checks for safety location and accountability
[2016-12-24 09:20] VITALS: BP 117/78; PULSE 81; RESP 17
[2016-12-24 10:50] LABS: BASOPHILS % (AUTO) 0.4 % (0-3); EOSINOPHILS % (AUTO) 4.4 % (0-5); MONOCYTES % (AUTO) 8.8 % (4-12); Mean Corpuscular Hemoglobin 29.4 pg (27.0-35.0); Mean Corpuscular Volume 90.9 fL (81-100); NEUTROPHILS % (AUTO) 44.1 % (40-74); Platelet Count 199 bil/L (150-400)
--- NOTE | 2016-12-24 14:15 | PCM.PNPSY ---
Subjective Date of Service Dec 24, 2016 Subjective The patient is still isolative to room. The patient reports that she is "feeling better today." The patient's Depakote level was 73 and we discussed increasing the dose to 750 mg at bedtime and the patient was agreeable. The patient denied side effects this time. Sleep: 8 hours Appetite: "Trying to eat as much as I can." Suicidal and homicidal ideation: Denies Auditory hallucinations/Visual hallucinations: Denies Other Psychotic Symptoms: Social isolation Anxiety: "Doing alright" Depression: "I feel a little" Current Medications Current Medications Diphenhydramine HCl 25-50mg po q4hr prn itch... Q4H PRN PO Last administered on 12/23/16t 20:27; Admin Dose 50 MG; Start 12/23/16 at 16:30 Mental Status Exam Vital Signs Vital Signs Date Time Temp Pulse Resp B/P Pulse Ox O2 Delivery O2 Flow Rate FiO2 12/24/16 09:20 36.1 81 17 117/78 Appearance: Neat/well groomed Attitude: Cooperative, Guarded Behavior: Overtly anxious Affect: Restricted Mood: Dysthymic, Fearful Thought Process/Associations: Other (poverty of speech) Speech Production: Soft, Mumbled Speech Rate: Lags/Latency Speech Articulation: Normal Thought Content: Perseveration Danger to Self/Suicidal Ideati: None Danger to Others: None Hallucinations: Auditory (Denies), Visual (Denies) Consciousness: Hyper-vigilant Orientation: Person, Place, Situation Memory: Short Term Memory (Impaired) Estimate Intellectual Function: Average Basis for IQ estimate: Word use/vocabulary, Educational history Attention/Concentration & Cogn: Impaired Insight: Limited Judgement: Limited Result Diagram: 12/24/16 1000 12/24/16 1000 Mental Health Plan The patient is a 31-year-old, with four prior inpatient hospitalizations for depression and psychosis. Her current presentation is similar to her presentation in 2012, where she presented as mute and with auditory hallucinations. She has a prior diagnosis of posttraumatic stress disorder and major depression. At the time of admission, the patient had stopped all medications and was labile with disorganized thoughts. Client's SSRI apparently was stopped for concern about seizures. There was a report of a seizure 2 days prior to admission. The patient had a neurology consult, MRI, and CT scan at [facility] and was recommended to start Keppra however she could not tolerate this medication and was placed on Depakote. She has remained seizure-free since admission. The patient was restarted on fluoxetine and has so far had no side effects. She she has also been treated with olanzapine 5 mg nightly and clonazepam 0.5 mg twice daily and appears to be slowly responding to treatment. As the patient's valproic acid level was 73 will only increase a.m. dose to 750 mg. Zion Zion I. 1. Major depressive disorder with psychosis. 2. Posttraumatic stress disorder. 3. Cannabis use disorder Zion II. Defer. Zion III. Rule out recent seizure x2 reported by mother on December 15, 2016. Zion IV. Unknown. Zion V. GAF 35 Medications Prozac 20 mg daily Zyprexa 5 nightly Klonopin 0.5 b.i.d. Depakote ER 750 nightly Trazodone at 50 nightly Treatments 1. The patient is admitted to the inpatient unit and will be provided a safe and secure environment. 2. The patient is denying current active suicidality and is not in need of a one-to-one at this time. 3. The patient is encouraged to participate with group and milieu activities. 4. The patient will be seen by the treatment team on a daily basis to assess symptoms, side effects and response to treatment. 5. Increase Depakote ER to 750 mg nightly 6. Check valproic acid CBC, CMP on 12/29/2016 and adjust accordingly. 7. Consider increase of olanzapine if no further improvement. 8. Anticipated length of stay is 7-10 days. Dave Esparza MD Dec 24, 2016 14:15
[2016-12-24] MEDS: diphenhydrAMINE 25 mg Capsule PO PRN (15:33)
--- NOTE | 2016-12-24 15:33 | NUR ---
Nurses PRN Patient crying rubbing her hands through her hair while at dining table visiting with her mother. Received Benadryl 50mg and Zyprexa Zydis 5mg for c/o itching and rumination with altered thoughts,will assess response.
[2016-12-24] MEDS: OLANZapine Zydis ODT 5 mg Tablet PO PRN (15:41)
--- NOTE | 2016-12-24 17:50 | NUR ---
Nursing Notes [id number] S: "I think a little better". O: Patient given prn Zyprexa and Benadryl and appeared to have reduced anxiety. Able to respond to staff with minor hesitancy, without fearfulness. Patient continues to isolate in her room, with minimal interactions with peers. A: Patient continues to be guarded, restricted, and fearful/perseverated at times-some improvement after prn Zyprexa. P: Monitor for safety and response to treatment. Follow plan of care. Addendum: 12/24/16 at 1750 by COLLIN FLANNERY RN PRNs 15:33 Zyprexa 5 mg po prn for anxiety. Somewhat effective, patient appears less tearful and better able to interact with staff. Benadryl 50 mg po for itching. Effective.
--- NOTE | 2016-12-24 19:09 | NUR ---
Observations 0900 - 2130 Pt affect and mood remains the same as previous shifts. anxious, flat, emotional, lost, sullen and isolative. Pt was in her room and in bed most of the morning. Pt was pleasant, polite and cooperative when approached but still very timid. Pt maintained behavior throughout the shift. Pt continues to be unsocial and keeps to herself when out of her room. Pt took a shower and attended to ADL's. Pt attended meals in D.R. and ate approximately 75% of her meals. Pt ate a snack. Pt visited with her Mom and it appeared to go well. Pt was observed every 15 minutes through the shift as ordered.
[2016-12-24] MEDS ORDERED: Benzocaine-Menthol Lozenge 2/Pkg PO ONE (20:29)
[2016-12-24] MEDS: Divalproex (QD) 250 mg ER24 Tablet PO SCH (20:32)
[2016-12-24] MEDS ORDERED: Benzocaine-Menthol Lozenge 2/Pkg PO PRN (21:50)
--- NOTE | 2016-12-25 05:56 | NUR ---
Nursing Note Light Coil Winder 7pm-7am Patient was asleep in room at start of shift. She came out to dining room for evening snack. Patient was pleasant, calm and cooperative. Took HS medications, returned to room and slept through the night. Patient slept 8.5+ hours. Pt monitored q 15 minutes for safety, location and accountability.
--- NOTE | 2016-12-25 12:30 | PCM.PNPSY ---
Subjective Date of Service Dec 25, 2016 Subjective The patient is still isolative to room. The patient reports that she is "doing a little better today but my eyes bothering me." The patient reports some discomfort in her left eye. No redness, swelling, or discharge is noted. Extraocular movements are intact and pupils are equal round reactive to light. The patient initially reported some difference in her vision from right to left but after putting on her eyeglasses reported her vision was the same. The patient denied side effects. She stated her mood was "pretty good." The patient denied side effects this time. Sleep: 7.5 hours, "better sleep" Appetite: "Better." Suicidal and homicidal ideation: Denies Auditory hallucinations/Visual hallucinations: Denies Other Psychotic Symptoms: Social isolation Anxiety: 06/30 Depression: 06/30 Current Medications Current Medications Diphenhydramine HCl 25-50mg po q4hr prn itch... Q4H PRN PO Last administered on 12/24/16 15:33; Admin Dose 50 MG; Start 12/23/16 at 16:30 Divalproex Sodium 750 mg HS PO Last administered on 12/24/16 20:32; Admin Dose 750 MG; Start 12/24/16 at 21:00 Olanzapine 5 mg BID PRN PO Last administered on 12/24/16 15:41; Admin Dose 5 MG ; Start 12/24/16 at 15:35 Mental Status Exam Appearance: Neat/well groomed Attitude: Cooperative, Guarded Behavior: Overtly anxious Affect: Restricted Mood: Dysthymic, Fearful Thought Process/Associations: Other (poverty of speech) Speech Production: Soft Speech Rate: Lags/Latency Speech Articulation: Normal Thought Content: Somatic preoccupation Danger to Self/Suicidal Ideati: None Danger to Others: None Hallucinations: Auditory (Denies), Visual (Denies) Consciousness: Hyper-vigilant Orientation: Person, Place, Situation Memory: Short Term Memory (Impaired) Estimate Intellectual Function: Average Basis for IQ estimate: Word use/vocabulary, Educational history Attention/Concentration & Cogn: Impaired Insight: Limited Judgement: Limited Result Diagram: 12/24/16 1000 12/24/16 1000 Mental Health Plan The patient is a 31-year-old, with four prior inpatient hospitalizations for depression and psychosis. Her current presentation is similar to her presentation in 2011, where she presented as mute and with auditory hallucinations. She has a prior diagnosis of posttraumatic stress disorder and major depression. At the time of admission, the patient had stopped all medications and was labile with disorganized thoughts. Client's SSRI apparently was stopped for concern about seizures. There was a report of a seizure 2 days prior to admission. The patient had a neurology consult, MRI, and CT scan at [facility] and was recommended to start Keppra however she could not tolerate this medication and was placed on Depakote. She has remained seizure-free since admission. The patient was restarted on fluoxetine and has so far had no side effects. She she has also been treated with olanzapine 5 mg nightly and clonazepam 0.5 mg twice daily and appears to be slowly responding to treatment. As the patient's valproic acid level was 73 will only increase a.m. dose to 750 mg. Today, the patient reports her symptoms are somewhat improved with no side effect complaints. She reports some discomfort in her left eye but no obvious source is noted. [place] I. 1. Major depressive disorder with psychosis. 2. Posttraumatic stress disorder. 3. Cannabis use disorder [place] II. Defer. [place] III. Rule out recent seizure x2 reported by mother on December 15, 2016. [place] IV. Unknown. [place] V. GAF 35 Medications Prozac 20 mg daily Zyprexa 5 nightly Klonopin 0.5 b.i.d. Depakote ER 750 nightly Trazodone at 50 nightly Treatments 1. The patient is admitted to the inpatient unit and will be provided a safe and secure environment. 2. The patient is denying current active suicidality and is not in need of a one-to-one at this time. 3. The patient is encouraged to participate with group and milieu activities. 4. The patient will be seen by the treatment team on a daily basis to assess symptoms, side effects and response to treatment. 5. Continue Depakote ER 750 mg nightly 6. Check valproic acid CBC, CMP on 12/29/2016 and adjust accordingly. 7. Consider increase of olanzapine if no further improvement. 8. Warm compresses to her discomfort continues. Patient to notify staff should any changes occur. 9. Anticipated length of stay is 7-10 days. Dave Esparza MD Dec 25, 2016 12:30
[2016-12-25 12:52] VITALS: BP 107/55; PULSE 94; RESP 16
--- NOTE | 2016-12-25 15:20 | NUR ---
Observations 0900 - 1700 Pt affect and mood remains the same as previous shifts. Pt was isolative and in bed most of the shift. Pt stated that she was anxious. Pt was pleasant, polite and cooperative when approached. Pt maintained behavior throughout the shift. Pt continues to be unsocial and keeps to herself when out of her room. Pt attended meals in D.R. and ate approximately 75% of her meals. Pt ate a snack. Pt declined to come out for community meeting. Pt refused to participate in unit activities. Pt was observed every 15 minutes through the shift as ordered.
--- NOTE | 2016-12-25 16:04 | NUR ---
Nursing Dayshift: S: "I'm feeling anxious. I can't answer any more questions." O: Patient has been isolating in her room for much of the day. Relates to mild to moderate anxiety and depression. Denies harmful thoughts and hallucinations. Good appetite at meals. Declining to go to unit activities. A: Flat. Fatigued. Isolative. P: CPOC. Monitor mood and behavior.
--- NOTE | 2016-12-25 17:08 | NUR ---
Malted Milk Supervisor/Counselor S:" My eye and ear are bothering me." O: Patient denies any SI or HI, no AVH, ratd her anxiety at 3 as well as her depression. A: Patient complained about a pain in her eye, and blurriness, but was not wearing her glasses. She has kept to her room for most of the day and not participated in any activities. P: Follow care plan and coordinate with outpatient providers.
[2016-12-25] MEDS: LORazepam 1 mg Tablet PO PRN (18:02)
[2016-12-25] MEDS: Divalproex (QD) 250 mg ER24 Tablet PO SCH (20:50)
--- NOTE | 2016-12-26 00:55 | NUR ---
Observations 1900 to 0700 Pt ate a snack. Pt spends free time sitting with peer. Pt is not observed speaking much of their conversation and pt continues to be tearful. Pt continues to be easily triggered and becomes tearful Pt appeared asleep at 2300 and has remained asleep. Pt respirations were observed when asleep. Staff completed 15 min close observations as ordered.
--- NOTE | 2016-12-26 06:25 | NUR ---
Nursing Note Environmental Marketing Representative 7pm-7am Patient was sitting in dining room conversing with peers at start of shift. Took HS medications, went to her room. At 2210 patient came to nurses station requesting to use the phone and was told by staff that it was too late to use the phone, but she could use it in the morning. Patient was crying and tearful and returned to her room, accompanied by another nurse, who sat with her for approximately 15 minutes, until she was calm and no longer tearful. Patient was reminded that if she needed anything or if she felt she needed to speak to a staff member, she could call the nurses station from her room. Patient remained in her room for the rest of the night and slept 7+ hours. Pt monitored q 15 minutes for safety, location and accountability.
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
[2016-12-26] MEDS: LORazepam 1 mg Tablet PO PRN (17:06)
--- NOTE | 2016-12-26 17:08 | NUR ---
Observations 0925-1502 Pt continued to isolate to room and appear distressed much of the day. Pt did spend more time in common areas then observed in previous shifts. She continues to cry at times and is timid and shy with both peers and staff. Pt did speak to Mother who is her main support and those phone calls appear to help. She attended all meals eating an average of 70%. Pt was observed every 15 minutes of shift as directed.
--- NOTE | 2016-12-26 17:13 | NUR ---
Geodetic Computator/Counselor S:"I'm trying to eat because I know I should." O: Patient denies any SI or HI, no AVH, stated her anxiety was high and did not rate depression. A: Patient has been in her room for most of the day. Tearful at times. Tangential and has to be redirected often. P: Follow care plan and coordinate with outpatient providers.
--- NOTE | 2016-12-26 18:06 | NUR ---
Nursing Day Shift: S: "Can I get some more of that medicine? I'm feeling real anxious!" O: Patient received 2 mg of Ativan late this afternoon with effective relief. Mother here at present watching TV with patient. Good appetite. Out of her room more later in the shift. A: Anxious. Smiling with mom here. P: CPOC. Monitor mood and behavior.
[2016-12-26] MEDS: Divalproex (QD) 250 mg ER24 Tablet PO SCH (21:19)
[2016-12-26] MEDS: diphenhydrAMINE 25 mg Capsule PO SCH (21:19)
--- NOTE | 2016-12-27 06:22 | NUR ---
NIGHT NURSE NOTE [id number]: Pt was visiting and watching TV with her mother in the dayroom at the start of the shift. Pt went to bed about 2130 and appeared to sleep through the night. Pt slept 7.75 hrs. Pt monitored q15min for location, safety and accountability.
[2016-12-27] MEDS: diphenhydrAMINE 25 mg Capsule PO SCH ×2 (08:30→20:38)
[2016-12-27] MEDS: LORazepam 1 mg Tablet PO PRN ×2 (12:23→17:39)
[2016-12-27] MEDS: OLANZapine Zydis ODT 5 mg Tablet PO PRN (12:23)
--- NOTE | 2016-12-27 16:48 | NUR ---
Obs Dayshift Pt continues to look scared, paranoid, anxious but less so than last week. Pt is constantly on the phone calling mom or taking a call from mom. Pt calls mom talks to her about anxieties and mom calls the RN station asking for someone to give pt meds. Pt is engaging very little w/ staff, and only when pushed some by staff to engage. Pt is very soft spoken. Need encouragement often. Not participating in any activities on the unit. Does eat meals out in the milieu. Will watch TV when mom is visiting. Sits mostly in her room either in bed or on her bed coloring or writing. Ok ADL's, Ok/Good meals
[2016-12-27 17:42] VITALS: BP 111/72; PULSE 88; RESP 16
--- NOTE | 2016-12-27 17:50 | NUR ---
[facility] Day Shift Pt maintained behavioral control throughout the shift. Pt affect appears flat, sad. Pt spends most of the shift isolating in her room, appearing anxious and tearful throughout most of the shift. Pt is very quiet when engaged with staff and peers, and pt appears uncomfortable engaging with staff and peers for extended periods of time. Pt did not attend community meeting or group activities throughout the shift. Pt attended all meals and ate approx 70% of all meals.
--- NOTE | 2016-12-27 18:53 | NUR ---
Nursing Notes [id number] S: "I don't know what to do". "I don't know who to talk to-I don't know who to trust". "I don"t care if I , but I don't want to be tortured". "My mom said I shouldn't talk to you guys, if I want to ever get out of here". "My mom said I should pretend I am better so I can go home". "I have visions of how my family and I will be tortured, but I don't know if it is hallucinations". "I know I am being tracked'. O: Patient reporting anxiety 01/30, visions of how she and her family will be tortured because she is not perfect enough. A: Guarded, isolating, labile/tearful, suspicious, and paranoid, perseverating. P: Monitor for safety and response to treatment. Follow plan of care.
[2016-12-27] MEDS: Divalproex (QD) 250 mg ER24 Tablet PO SCH (20:38)
--- NOTE | 2016-12-27 21:56 | PCM.PNPSY ---
Subjective Date of Service Dec 27, 2016 Subjective The patient reports, "I am feeling nervous right now...I wish I had more communication. I wish I had a partner that would care for me, love me, protect me." Attempted to work through CBT worksheet with patient, but patient had little interest. Patient was out of room more and encouraged to isolate less. Discussed need to increase antidepressant and patient agreeable. No side effect complaints. Sleep: 7.75 hours "vivid dreams" Appetite: "I ate all of my breakfast." Suicidal and homicidal ideation: denies Auditory hallucinations: denies Visual hallucinations: denies Other Psychotic Symptoms: endorses mild paranoia Anxiety/Depression: endorses, but cannot rate. Current Medications Current Medications Diphenhydramine HCl 25 mg BID PO Last administered on 12/27/16 08:30; Admin Dose 25 MG; Start 12/26/16 at 20:30 Fluoxetine HCl 10 mg ONCE ONCE PO Last administered on 12/27/16 13:17; Admin Dose 10 MG; Start 12/27/16 at 12:15; Stop 12/27/16 at 12:31; Status DC Mental Status Exam Appearance: Neat/well groomed Attitude: Cooperative, Guarded Behavior: Overtly anxious, Tearful Affect: Restricted Mood: Dysthymic, Fearful Thought Process/Associations: Logical/Sequential, Goal Directed Speech Production: Soft Speech Rate: Lags/Latency Speech Articulation: Normal Thought Content: Negativistic, Somatic preoccupation, Perseveration Danger to Self/Suicidal Ideati: None Danger to Others: None Delusions: Paranoid (Endorses) Hallucinations: Auditory (Denies), Visual (Denies) Consciousness: Hyper-vigilant Orientation: Person, Place, Situation Memory: Short Term Memory (Impaired) Estimate Intellectual Function: Average Basis for IQ estimate: Word use/vocabulary, Educational history Attention/Concentration & Cogn: Impaired Insight: Limited Judgement: Limited Result Diagram: 12/24/16 1000 12/24/16 1000 Mental Health Plan The patient is a 31-year-old, with four prior inpatient hospitalizations for depression and psychosis. Her current presentation is similar to her presentation in 2012, where she presented as mute and with auditory hallucinations. She has a prior diagnosis of posttraumatic stress disorder and major depression. At the time of admission, the patient had stopped all medications and was labile with disorganized thoughts. Client's SSRI apparently was stopped for concern about seizures. There was a report of a seizure 2 days prior to admission. The patient had a neurology consult, MRI, and CT scan at [facility] and was recommended to start Keppra however she could not tolerate this medication and was placed on Depakote. She has remained seizure-free since admission. The patient was restarted on fluoxetine and has so far had no side effects. She she has also been treated with olanzapine 5 mg nightly and clonazepam 0.5 mg twice daily and appears to be slowly responding to treatment. As the patient's valproic acid level was 73 will only increase a.m. dose to 750 mg. Today, the patient reports her symptoms are somewhat improved with no side effect complaints but is quite tearful and has negative self talk. We attempted to use cognitive behavioral therapy, but patient had difficulty remaining focused. Discussed increasing antidepressant, and reducing pm clonazepam and patient agreeable. [place] I. 1. Major depressive disorder with psychosis. 2. Posttraumatic stress disorder. 3. Cannabis use disorder [place] II. Defer. [place] III. Rule out recent seizure x2 reported by mother on December 15, 2016. [place] IV. Unknown. [place] V. GAF 35 Medications Fluoxetine 30 mg daily Zyprexa 5 nightly Klonopin 0.5 daily Depakote ER 750 nightly Trazodone at 50 nightly Treatments 1. The patient is admitted to the inpatient unit and will be provided a safe and secure environment. 2. The patient is denying current active suicidality and is not in need of a one-to-one at this time. 3. The patient is encouraged to participate with group and milieu activities. 4. The patient will be seen by the treatment team on a daily basis to assess symptoms, side effects and response to treatment. 5. Reduce clonazepam to 0.5mg daily to reduce pm sedation. 6. Check valproic acid CBC, CMP on 12/29/2016 and adjust accordingly. 7. Will continue to practice CBT worksheets and relaxation exercises. 8. reduce clonazepam to 0.5mg daily 9. Anticipated length of stay is 7-10 days. Dave Esparza MD Dec 27, 2016 16:25
--- NOTE | 2016-12-28 02:47 | NUR ---
NIGHT NURSE NOTE [id number]: Pt was sitting in the dayroom for the first part of the shift, working on a puzzle. Pt reported that she feels more sad and depressed than anxious. She also states she is fearful, but could not say exactly why. Pt perseverates on past regrets and tearful. Pt went to bed at 2200. Pt monitored q15 for location, safety, and accountability.
[2016-12-28] MEDS: diphenhydrAMINE 25 mg Capsule PO SCH ×2 (09:09→20:37)
[2016-12-28] MEDS: LORazepam 1 mg Tablet PO PRN ×2 (09:12→13:45)
[2016-12-28 10:58] VITALS: BP 110/72; PULSE 92; RESP 16
--- NOTE | 2016-12-28 15:12 | PCM.PNPSY ---
Subjective Date of Service Dec 28, 2016 Subjective The patient states, "when I take my medicine it helps me to tune out. Today I am feeling anxious ... I am over analyzing things." The patient reported that she did not complete the CBT worksheets as she was concerned she would not do them correctly. She reports feeling that she is being somehow tracked by her dental fillings and earlier in the stay she felt that we were trying to poison her with medication. She reports still having some lingering concerns. The patient's mother had called and wished to have a physician call back but the patient was unsure whether she wanted this to occur and what information to be passed on. She denies side effects Sleep: 7.2 but hours Appetite: Improved Suicidal ideation: Passive without plan or intent, "if it would help anyone else." Homicidal ideation: Denies Auditory hallucinations: Denies Visual hallucinations: Denies Other Psychotic Symptoms: Paranoid delusions as above Anxiety: "I feel like any runaway and hide" Depression:"I feel a little better." Current Medications Current Medications Clonazepam 0.5 mg DAILY PO Last administered on 12/28/16 09:09; Admin Dose 0.5 MG; Start 12/28/16 at 08:30 Diphenhydramine HCl 25 mg BID PO Last administered on 12/28/16 09:09; Admin Dose 25 MG; Start 12/26/16 at 20:30 Fluoxetine HCl 10 mg ONCE ONCE PO Last administered on 12/27/16 13:17; Admin Dose 10 MG; Start 12/27/16 at 12:15; Stop 12/27/16 at 12:31; Status DC Fluoxetine HCl 30 mg DAILY PO Last administered on 12/28/16 09:09; Admin Dose 30 MG; Start 12/28/16 at 08:30 Mental Status Exam Vital Signs Vital Signs Date Time Temp Pulse Resp B/P Pulse Ox O2 Delivery O2 Flow Rate FiO2 12/28/16 10:58 36.4 92 16 110/72 Appearance: Neat/well groomed Attitude: Cooperative, Guarded Behavior: Overtly anxious, Tearful Affect: Restricted Mood: Dysthymic, Fearful Thought Process/Associations: Logical/Sequential, Goal Directed Speech Production: Soft Speech Rate: Lags/Latency Speech Articulation: Normal Thought Content: Negativistic, Somatic preoccupation, Perseveration Danger to Self/Suicidal Ideati: None Danger to Others: None Delusions: Paranoid (Endorses) Hallucinations: Auditory (Denies), Visual (Denies) Consciousness: Hyper-vigilant Orientation: Person, Place, Situation Memory: Short Term Memory (Impaired) Estimate Intellectual Function: Average Basis for IQ estimate: Word use/vocabulary, Educational history Attention/Concentration & Cogn: Impaired Insight: Limited Judgement: Limited Result Diagram: 12/24/16 1000 12/24/16 1000 Mental Health Plan The patient is a 31-year-old, with four prior inpatient hospitalizations for depression and psychosis. Her current presentation is similar to her presentation in 2011, where she presented as mute and with auditory hallucinations. She has a prior diagnosis of posttraumatic stress disorder and major depression. At the time of admission, the patient had stopped all medications and was labile with disorganized thoughts. Client's SSRI apparently was stopped for concern about seizures. There was a report of a seizure 2 days prior to admission. The patient had a neurology consult, MRI, and CT scan at [facility] and was recommended to start Keppra however she could not tolerate this medication and was placed on Depakote. She has remained seizure-free since admission. The patient was restarted on fluoxetine and has so far had no side effects. She she has also been treated with olanzapine 5 mg nightly and clonazepam 0.5 mg twice daily and appears to be slowly responding to treatment. As the patient's valproic acid level was 73 will only increase a.m. dose to 750 and her blood level today was 116. Today, the patient reports her symptoms are somewhat improved with no side effect complaints but is quite tearful and has negative self talk. She is also expressing ongoing paranoid delusions. The patient was unable to participate with cognitive behavioral therapy. The patient is unsure whether she wished to have her mother contacted by the physician at this time. Fisher Fisher I. 1. Major depressive disorder with psychosis. 2. Posttraumatic stress disorder. 3. Cannabis use disorder Fisher II. Defer. Fisher III. Rule out recent seizure x2 reported by mother on December 15, 2016. Fisher IV. Unknown. Fisher V. GAF 35 Medications Fluoxetine 30 mg daily Zyprexa 5 nightly Klonopin 0.5 daily Depakote ER 750 nightly Trazodone at 50 nightly Treatments 1. The patient is admitted to the inpatient unit and will be provided a safe and secure environment. 2. The patient is denying current active suicidality and is not in need of a one-to-one at this time. 3. The patient is encouraged to participate with group and milieu activities. 4. The patient will be seen by the treatment team on a daily basis to assess symptoms, side effects and response to treatment. 5. Reduce clonazepam to 0.5mg daily to reduce pm sedation. 6. Reduce valproic acid to 500 mg nightly 7. Increase olanzapine to 10 mg nightly 8. Will continue to practice CBT worksheets and relaxation exercises. 9. Continue clonazepam0.5mg daily 10. Anticipated length of stay is 7-10 days. Dave Esparza MD Dec 28, 2016 15:12
--- NOTE | 2016-12-28 16:47 | NUR ---
Nursing Notes [id number] S: "I just feel that I really need to get out of here as soon as possible". "I need to get things figured out and bulk picker the pieces". "I know that I have a chip in me that you guys are recording me and you can rewind it and play it back to listen, if I make a mistake". O: Patient able to talk to staff this morning without tearfulness. Continues to report feelings of doom and concern for herself and her family. A: Paranoid, delusional, guarded, restricted, tearful, frightened and perseverating. P: Monitor for safety and response to treatment. Follow plan of care. Addendum: 12/28/16 at 1730 by COLLIN FLANNERY RN PRHosea's 0912 Ativan 2 mg po for anxiety 11/30. Minimally effective reduced to 10/30. 1345 Ativan 2 mg po for anxiety 12/31.Minimally effective reduced to 11/30. 1706 Zyprexa 5 mg po for anxiety 11/30. Effective, patient able to work on a puzzle.
[2016-12-28] MEDS: OLANZapine Zydis ODT 5 mg Tablet PO PRN (17:06)
--- NOTE | 2016-12-28 18:23 | NUR ---
Sheet Metal Shop Foreman/Counselor: S: "When I take my medicine, it helps me to tune out the bad stuff. But today I'm over-analyzing everything." O: Patient slept 7.25 hours last night per staff. Patient denies S/I, but states, "I don't want to kill myself, but if it would help someone else if I did, I would." She denies H/I. She denies auditory and visual hallucinations. Depression and anxiety are "not great." Patient went on to state, "I feel pretty alone right now. I feel like the government is tracking me by the fillings in my teeth, at least for the last 10 years." A: Patient is cooperative, unkept, labile, tearful, tangential, limited insight, limited judgment. P: Follow the care plan, coordinate with out-patient providers.
--- NOTE | 2016-12-28 19:50 | NUR ---
Observations 0900 - 0 Pt affect and mood remains the same as previous shifts. flat, anxious, tearful Pt was isolative and in bed most of the shift. Pt was pleasant, polite and cooperative when approached. Pt maintained behavior throughout the shift. Pt continues to be unsocial and keeps to herself when out of her room. Pt attended meals in D.R. and ate approximately 75% of her meals. Pt ate a snack. Pt declined to come out for community meeting. Pt refused to participate in unit activities. Pt visited with her mom during visitation. Pt was observed every 15 minutes through the shift as ordered.
[2016-12-28] MEDS: Divalproex (QD) 500 mg ER24 Tablet PO SCH (20:37)
--- NOTE | 2016-12-29 02:53 | NUR ---
Nursing Noc Pt out to common area for short periods working on a puzzle, and noted to present less paranoid. Pt noted to be able to respond to writers questions appropriately and discuss concerns after discharge. Pt reported social anxiety and difficulty with being her own advocate. Continuing to monitor mood, behavior, emotional state, sleep quality and quantity. CP, Q15 minute safety checks.
[2016-12-29] MEDS: diphenhydrAMINE 25 mg Capsule PO SCH ×2 (09:07→20:43)
--- NOTE | 2016-12-29 13:25 | NUR ---
NURS NOTE DAY Mood: "I'm really anxious. Can I have a red and white pill." Endorses anxiety 08/30. Denies depression. Affect: Restricted. Thought Process/Content: "Can I have a Haldol. Can I just take both of my haldols now. I want to sleep . . . I've been wearing ear plugs for the past two years." Pt endorses AH. Denies VH. Denies SI, HI. Behavior: Pt isolate in room much of shift. Up for meetings. Makes frequent requests for medication from staff. PRNs/NURS: Administered 10 mg halperidol at 1237 (combined 1600 and PRN dose) per Dr. Esparza's suggestion. Pt has one remaining dose of PRN halperidol. Addendum: 12/29/16 at 1338 by GABRIELLA CANALES RN ERROR: CHARTED ON THE WRONG PATIENT
--- NOTE | 2016-12-29 13:41 | NUR ---
DISREGARD PREVIOUS NOTE -- WRITTEN ON INCORRECT PATIENT
--- NOTE | 2016-12-29 13:42 | NUR ---
NURSE NOTE DAY Mood: "I'm so afraid of what's going to happen to me." Endorses anxiety and depression. Affect: Anxious, tearful, guarded. Thought Process/Content: "Sometimes I wonder what I am supposed to do. Am I supposed to run away with someone. I just can't figure things out and I'm afraid something is going to happen to me and my family." Disorganized, paranoid. Denies AH, VH. Denies SI, HI. Behavior: Pt on phone with mother in the morning, up in common areas working on puzzle in the afternoon. Guarded. Cooperative with staff and peers.
[2016-12-29 15:00] VITALS: BP 106/71; PULSE 91; RESP 18
[2016-12-29] MEDS: OLANZapine Zydis ODT 5 mg Tablet PO PRN (15:44)
[2016-12-29] MEDS: LORazepam 1 mg Tablet PO PRN (17:08)
--- NOTE | 2016-12-29 17:21 | NUR ---
PRN given for anxiety paranoia "I am having such bad thoughts" Pt crying at times report high anxiety and thoughts that are bothering her given Zyprexa after one hour later with no improvement took Ativan with some improvement
--- NOTE | 2016-12-29 18:14 | NUR ---
[facility] Day Shift Pt maintained behavioral control throughout the shift. Pt affect appears flat, sad. Pt spends most of the shift isolating in her room, appearing anxious and tearful throughout most of the shift. Pt is very quiet when engaged with staff and peers, and pt appears uncomfortable engaging with staff and peers for extended periods of time (but pt appears more vocal this shift). Pt did not attend community meeting or group activities throughout the shift. Pt appetite appears to be markedly increased from previous shifts. Pt attended all meals and ate approx 100% of all meals.
[2016-12-29 18:55] VITALS: BP 106/71; PULSE 91; RESP 18
--- NOTE | 2016-12-29 19:06 | NUR ---
Airborne Operations/Counselor: S: "I talked to my mom and she wants me to come home." O: Patient slept 6.75 hours last night per staff. Patient denies S/I and H/I. She denies auditory and visual hallucinations. Depression and anxiety were not rated. A: Patient is cooperative, fearful, labile, tearful, tangential, paranoid, limited insight, limited judgment. P: Follow the care plan, coordinate with out-patient providers.
[2016-12-29] MEDS: Divalproex (QD) 500 mg ER24 Tablet PO SCH (20:43)
--- NOTE | 2016-12-29 22:31 | PCM.PNPSY ---
Subjective Date of Service Dec 29, 2016 Subjective The patient's mother called to express her desire to have the patient home as soon as possible. She reported that the medications appear to improving her condition. She reports that the psychotic symptoms appear to be more recent and are not typical of her disorder. She reported that the neurologist had believed that the patient's seizures were anxiety related and was concerned that she was on an anti-epileptic (valproic acid). Discussed need for caution given uncertainty of condition. Patient reports that she believed others could hear her thoughts today and so had stayed in her room. These type of thoughts appear to be improving with olanzapine. The patient also reports that her mood is improved and she is feeling more stable. She denies side effects. Sleep: 6.75 hours Appetite: improving Suicidal and homicidal ideation: denies Auditory hallucinations: denies Visual hallucinations: denies Other Psychotic Symptoms: thought broadcasting, paranoia Anxiety: regarding others knowing her thoughts Depression: improved Current Medications Current Medications Clonazepam 0.5 mg DAILY PO Last administered on 12/29/16 09:07; Admin Dose 0.5 MG; Start 12/28/16 at 08:30 Divalproex Sodium 500 mg HS PO Last administered on 12/28/16 20:37; Admin Dose 500 MG; Start 12/28/16 at 21:00 Fluoxetine HCl 30 mg DAILY PO Last administered on 12/29/16 09:07; Admin Dose 30 MG; Start 12/28/16 at 08:30 Olanzapine 10 mg HS PO Last administered on 12/28/16 20:37; Admin Dose 10 MG; Start 12/28/16 at 21:00 Mental Status Exam Appearance: Neat/well groomed Attitude: Cooperative, Guarded Behavior: Overtly anxious, Tearful Affect: Restricted Mood: Dysthymic, Fearful Thought Process/Associations: Logical/Sequential, Goal Directed Speech Production: Soft Speech Rate: Lags/Latency Speech Articulation: Normal Thought Content: Negativistic, Somatic preoccupation, Perseveration Danger to Self/Suicidal Ideati: None Danger to Others: None Delusions: Thought Broadcasting (Endorses), Paranoid (Endorses) Hallucinations: Auditory (Denies), Visual (Denies) Consciousness: Hyper-vigilant Orientation: Person, Place, Date, Situation Memory: Grossly Intact Estimate Intellectual Function: Average Basis for IQ estimate: Word use/vocabulary, Educational history Attention/Concentration & Cogn: Impaired Insight: Limited Judgement: Limited Result Diagram: 12/24/16 1000 12/24/16 1000 Mental Health Plan The patient is a 31-year-old, with four prior inpatient hospitalizations for depression and psychosis. Her current presentation is similar to her presentation in 2011, where she presented as mute and with auditory hallucinations. She has a prior diagnosis of posttraumatic stress disorder and major depression. At the time of admission, the patient had stopped all medications and was labile with disorganized thoughts. Client's SSRI apparently was stopped for concern about seizures. There was a report of a seizure 2 days prior to admission. The patient had a neurology consult, MRI, and CT scan at [facility] and was recommended to start Keppra however she could not tolerate this medication and was placed on Depakote. She has remained seizure-free since admission. The patient was restarted on fluoxetine and has so far had no side effects. She she has also been treated with olanzapine 5 mg nightly and clonazepam 0.5 mg twice daily and appeared to be slowly responding to treatment. Fluoxetine was increased to 30mg daily and olanzapine was increased to 10mg nightly. Clonazepam was decreased to 0.5mg daily. As the patient's valproic acid level was 73 Depakote was increased to 750 with a resulting blood level of 116. Given the questionable nature of seizures and patient report of excessive sedation, depakote was returned to 500mg. Today, the patient reports her symptoms are somewhat improved with no side effect complaints but is still experiencing thought broadcasting, paranoia, and negative self-talk. The patient was unable to participate with cognitive behavioral therapy. A 90 day petition was filed though family has expressed a desire to have the patient discharged to home on a LRO. Penryn Penryn I. 1. Major depressive disorder with psychosis. 2. Posttraumatic stress disorder. 3. Cannabis use disorder Penryn II. Defer. Penryn III. Rule out recent seizure x2 reported by mother on December 15, 2016. Penryn IV. Unknown. Penryn V. GAF 35 Medications Fluoxetine 30 mg daily Zyprexa 10 nightly Klonopin 0.5 daily Depakote ER 500 nightly Trazodone at 50 nightly Diphenhydramine 25mg po bid for itching Treatments 1. The patient is admitted to the inpatient unit and will be provided a safe and secure environment. 2. The patient is denying current active suicidality and is not in need of a one-to-one at this time. 3. The patient is encouraged to participate with group and milieu activities. 4. The patient will be seen by the treatment team on a daily basis to assess symptoms, side effects and response to treatment. 5. Will continue to encourage practice CBT worksheets and relaxation exercises. 6. Patient may benefit from EMDR on an outpatient basis 7. Paperwork filed for 90 day MRO, patient's family has requested 90LRO and will supervise patient on discharge. 8. Continue clonazepam0.5mg daily but would try to discontinue prior to discharge. 10. Anticipated length of stay is 7-10 days. Dave Esparza MD Dec 29, 2016 16:56
--- NOTE | 2016-12-30 04:02 | NUR ---
Nursing Noc Pt noted to become increasingly anxious and labile. Noted to call mother repeatedly within minutes and reporting, "their not helping me" as patient was crying reporting joint pain and restless legs. Noted increased Prozac, and Zyprexa with a decrease of Depakote. Reported history of seizure activity in November prior to arrival. Pt was able to gain control of hysteria like symptoms after approximately five minutes of therapeutic communication with feature writer. HS medications then taken as prescribed and patient relaxed in common area eating popcorn and watching TV. Noted to first be asleep at 2245 and has remained asleep throughout the shift. Continuing to monitor mood behavior and emotional state. Q15 minute safety checks throughout the night. BHCP
[2016-12-30] MEDS: diphenhydrAMINE 25 mg Capsule PO SCH ×2 (09:10→20:11)
--- NOTE | 2016-12-30 14:02 | PCM.PNPSY ---
Subjective Date of Service Dec 30, 2016 Subjective I spent 30 minutes both reviewing treatment plan with our clinical team, interviewing the patient and providing supportive/educational psychotherapy. I spent more than 50% of the time counseling the patient. I reviewed the treatment plan with the patient and discussed options available including the potential risks, benefits and side effects. Sugar reports a slight improvement in thought organization and mood stability. Staff reports that she has been more active and participating in a more substantial way in one-to-one unit and group activities. She slept 7 hours and denies psychotic symptoms review. She denies medication side effects. She was able to identify her medications and what they were used to treat. Current Medications Current Medications Divalproex Sodium 500 mg HS PO Last administered on 12/29/16 20:43; Admin Dose 500 MG; Start 12/28/16 at 21:00 Olanzapine 10 mg HS PO Last administered on 12/29/16 20:43; Admin Dose 10 MG; Start 12/28/16 at 21:00 Mental Status Exam Appearance: Neat/well groomed Attitude: Pleasant, Cooperative Behavior: Overtly anxious, Tearful Affect: Labile Mood: Dysthymic, Fearful Thought Process/Associations: Logical/Sequential, Goal Directed Speech Production: Normal Speech Rate: Normal Speech Articulation: Normal Thought Content: Negativistic, Somatic preoccupation, Perseveration Danger to Self/Suicidal Ideati: None Danger to Others: None Delusions: Thought Broadcasting (Endorses), Paranoid (Endorses) Consciousness: Hyper-vigilant Orientation: Person, Place, Date, Situation Memory: Grossly Intact Estimate Intellectual Function: Average Basis for IQ estimate: Word use/vocabulary, Educational history Attention/Concentration & Cogn: Impaired Insight: Limited Judgement: Limited Result Diagram: 12/24/16 1000 12/24/16 1000 Mental Health Plan The patient is a 31-year-old, with four prior inpatient hospitalizations for depression and psychosis. Her current presentation is similar to her presentation in 2012, where she presented as mute and with auditory hallucinations. She has a prior diagnosis of posttraumatic stress disorder and major depression. At the time of admission, the patient had stopped all medications and was labile with disorganized thoughts. Client's SSRI apparently was stopped for concern about seizures. There was a report of a seizure 2 days prior to admission. The patient had a neurology consult, MRI, and CT scan at [facility] and was recommended to start Keppra however she could not tolerate this medication and was placed on Depakote. She has remained seizure-free since admission. The patient was restarted on fluoxetine and has so far had no side effects. She she has also been treated with olanzapine 5 mg nightly and clonazepam 0.5 mg twice daily and appeared to be slowly responding to treatment. Fluoxetine was increased to 30mg daily and olanzapine was increased to 10mg nightly. Clonazepam was decreased to 0.5mg daily. As the patient's valproic acid level was 73 Depakote was increased to 750 with a resulting blood level of 116. Given the questionable nature of seizures and patient report of excessive sedation, depakote was returned to 500mg. Today, the patient reports her symptoms are somewhat improved with no side effect complaints but is still experiencing thought broadcasting, paranoia, and negative self-talk. The patient was unable to participate with cognitive behavioral therapy. A 90 day petition was filed though family has expressed a desire to have the patient discharged to home on a LRO. Arbela Arbela I. 1. Major depressive disorder with psychosis. 2. Posttraumatic stress disorder. 3. Cannabis use disorder Arbela II. Defer. Arbela III. Rule out recent seizure x2 reported by mother on December 15, 2016. Arbela IV. Unknown. Arbela V. GAF 35 Treatments Patient is being provided with a high degree of safety through our unit structure and active adult engagement provided by our mental health professionals, mental health technicians, psychiatric nurses and myself. We are focusing on developing improved coping skills and identifying stressors that may have led to current episode. We will attempt to: * Integrate into therapeutic groups, milieu and individual therapy. * Maintain in a closely monitored and structured unit * Provide low-stimulation environment * Obtain collateral data to assist in treatment planning * Assess degree of lability of affect and impulse control * Complete safety plan * Decrease frequency of relapse and need for re-hospitalization * Denies thoughts of harm to self and/or others * Establish a consistent sleep pattern * Medication effective in stabilization of mood and/or thought process * Reduce the risk of imminent harm to self and/or others by providing a safe environment * Tolerates medication without side effects * Patient will be on the following psychiatric medications: Fluoxetine 30 mg daily Zyprexa 10 nightly Klonopin 0.5 daily Depakote ER 500 nightly Trazodone at 50 nightly Education: Educate patient about recreational drug use as an etiology Educate about metabolic etiologies related to obesity Patient's legal status Paperwork filed for 90 day MRO, patient's family has requested 90LRO and will supervise patient on discharge.e Anticipated number of hospital days to achieve above goals: 7 Disposition: Home Lior Velarde MD Dec 30, 2016 14:02
--- NOTE | 2016-12-30 14:38 | NUR ---
[id number]. nurs. S: "I'm scared of being alone...I am worried about my mother..it's too much for her looking after me... I wish I had been different in school..." O: Pt quick to tears, pt fearful , sad, regretful re past, and choices made and ruminating on her lack of confidence, lack of self worth dating from school experiences. Pt stating that she could not trust that her children are safe because she can not view them on cell phone etc. Pt stating that she was scared about what she may have been saying, and mentioned that she was concerned about what a change of expression on Dr's face during conversation might mean. A: Pt examining some of her fearful negative forecasting, but still presenting with sad anxious affect, quick to tearfulness , having difficulty finding sense of hopefulness re future with children , ruminating about and questioning her past decisions and choices, P:CNCP
[2016-12-30 16:21] VITALS: BP 107/70; PULSE 88; RESP 18
--- NOTE | 2016-12-30 17:46 | NUR ---
Smooth Stucco Resurfacer/Counselor S:"I just feel like I can trust no one." O: Patient denies any SI or HI, no AVH, stated her anxiety is up and down and did not rate her depression. A: Patient is increasingly paranoid and mistrusting. She stated that she is unable to trust anyone, and feels that even her mom isn't trustworthy. Weepy and upset. Tangential and labile. P: Follow care plan and coordinate with outpatient provider.
--- NOTE | 2016-12-30 18:09 | NUR ---
[facility] Day Shift Pt maintained behavioral control throughout the shift. Pt affect appears flat, sad. Pt spends most of the shift resting in her room or engaging in unit activities throughout the shift. Pt is very quiet when engaged with staff and peers, and pt continues to appear uncomfortable engaging with staff and peers for extended periods of time (though less so than noted on previous shifts). Pt did not attend community meeting, but did attend group activities throughout the shift. Pt attended all meals and ate approx 100% of all meals.
[2016-12-30] MEDS: LORazepam 1 mg Tablet PO PRN ×2 (19:16→22:26)
[2016-12-30] MEDS: Divalproex (QD) 500 mg ER24 Tablet PO SCH (20:11)
[2016-12-30] MEDS: diphenhydrAMINE 25 mg Capsule PO PRN (22:26)
--- NOTE | 2016-12-31 04:47 | NUR ---
Nursing Noc Pt was able to maintain behavior control throughout this shift with assistance from bond underwriter. Pt then was noted to return to bond underwriter and request something for itching and restless legs. PRN Benedryl and Ativan given at that time while we revisited earlier conversation patient was noted to say, "what if I don't want to get better?" Patient was unable to elaborate on statement, then went back to room and is noted to remain asleep throughout the night. Continuing to monitor mood, behavior, and emotional state. q15 minute safety checks performed throughout the shift.
[2016-12-31] MEDS: diphenhydrAMINE 25 mg Capsule PO SCH ×2 (08:48→20:16)
--- NOTE | 2016-12-31 13:28 | PCM.PNPSY ---
Subjective Date of Service Dec 31, 2016 Subjective I spent 30 minutes both reviewing treatment plan with our clinical team, interviewing the patient and providing supportive/educational psychotherapy. I spent more than 50% of the time counseling the patient. I reviewed the treatment plan with the patient and discussed options available including the potential risks, benefits and side effects. Sugar repeated feeling a slight improvement in thought organization and mood stability. Staff reports that she has been more active and participating in a more substantial way in one-to-one unit and group activities. She slept 7 hours and denies psychotic symptoms review. She continues to have marked symptoms of emotional lability fearfulness and a depressed mood. She denies medication side effects. She was able to identify her medications and what they were used to treat. Mental Status Exam Appearance: Neat/well groomed Attitude: Pleasant, Cooperative Behavior: Overtly anxious, Tearful Affect: Labile Mood: Dysthymic, Fearful Thought Process/Associations: Logical/Sequential, Goal Directed Speech Production: Normal Speech Rate: Normal Speech Articulation: Normal Thought Content: Negativistic, Somatic preoccupation, Perseveration Danger to Self/Suicidal Ideati: None Danger to Others: None Delusions: Paranoid (Endorses) Consciousness: Hyper-vigilant Orientation: Person, Place, Date, Situation Memory: Grossly Intact Estimate Intellectual Function: Average Basis for IQ estimate: Word use/vocabulary, Educational history Attention/Concentration & Cogn: Impaired Insight: Limited Judgement: Limited Mental Health Plan The patient is a 31-year-old, with four prior inpatient hospitalizations for depression and psychosis. Her current presentation is similar to her presentation in 2012, where she presented as mute and with auditory hallucinations. She has a prior diagnosis of posttraumatic stress disorder and major depression. At the time of admission, the patient had stopped all medications and was labile with disorganized thoughts. Client's SSRI apparently was stopped for concern about seizures. There was a report of a seizure 2 days prior to admission. The patient had a neurology consult, MRI, and CT scan at [facility] and was recommended to start Keppra however she could not tolerate this medication and was placed on Depakote. She has remained seizure-free since admission. The patient was restarted on fluoxetine and has so far had no side effects. She she has also been treated with olanzapine 5 mg nightly and clonazepam 0.5 mg twice daily and appeared to be slowly responding to treatment. Today, Sugar reports her symptoms are somewhat improved with no side effect complaints and she states she is no longer experiencing thought broadcasting, or negative self-talk. She was active and engaged in the session today. [place] I. 1. Major depressive disorder with psychosis. 2. Posttraumatic stress disorder. 3. Cannabis use disorder [place] II. Defer. [place] III. Rule out recent seizure x2 reported by mother on December 15, 2016. [place] IV. Unknown. [place] V. GAF 35 Treatments Patient is being provided with a high degree of safety through our unit structure and active adult engagement provided by our mental health professionals, mental health technicians, psychiatric nurses and myself. We are focusing on developing improved coping skills and identifying stressors that may have led to current episode. We will attempt to: * Integrate into therapeutic groups, milieu and individual therapy. * Maintain in a closely monitored and structured unit * Provide low-stimulation environment * Obtain collateral data to assist in treatment planning * Assess degree of lability of affect and impulse control * Complete safety plan * Decrease frequency of relapse and need for re-hospitalization * Denies thoughts of harm to self and/or others * Establish a consistent sleep pattern * Medication effective in stabilization of mood and/or thought process * Reduce the risk of imminent harm to self and/or others by providing a safe environment * Tolerates medication without side effects * Patient will be on the following psychiatric medications: Fluoxetine 30 mg daily Zyprexa 10 nightly Klonopin 0.5 daily Depakote ER 500 nightly Trazodone at 50 nightly Education: Educate patient about recreational drug use as an etiology Educate about metabolic etiologies related to obesity Patient's legal status Paperwork filed for 90 day MRO, patient's family has requested 90LRO and will supervise patient on discharge.e Anticipated number of hospital days to achieve above goals: 7 Disposition: Home Lior Velarde MD Dec 31, 2016 13:28
[2016-12-31] MEDS: LORazepam 1 mg Tablet PO PRN ×2 (13:34→22:08)
--- NOTE | 2016-12-31 17:14 | NUR ---
Dural Mechanic/Counselor S: "My mom wants to talk to my nurse." O: Patient denies S/I and H/I. She denies auditory and visual hallucinations. Depression and anxiety were not rated. A: Patient is cooperative, fearful, labile, tearful, tangential, paranoid, limited insight, limited judgment. Patient slept for 6.5 hours. P: Follow the care plan, coordinate with out-patient providers.
--- NOTE | 2016-12-31 17:45 | NUR ---
[facility] Day Shift Pt affect and behavior mostly unchanged from previous shifts. Pt maintained behavioral control throughout the shift. Pt affect appears flat, sad (though somewhat brighter than noted on previous shift). Pt spends most of the shift resting in her room or engaging in unit activities throughout the shift. Pt is very quiet when engaged with staff and peers, and pt continues to appear uncomfortable engaging with staff and peers for extended periods of time (though less so than noted on previous shifts). Pt did not attend community meeting, but did attend group activities throughout the shift. Pt attended all meals and ate approx 100% of all meals.
[2016-12-31] MEDS: OLANZapine Zydis ODT 5 mg Tablet PO PRN (17:55)
--- NOTE | 2016-12-31 18:27 | NUR ---
[id number]. nurs. S: " I had a good mtg with Dr Velarde then I was speaking with my mother and I began second guessing whether I could trust.... Pt's mother phoning concerned re her daughter's anxiety after speaking with her daughter. Pt reporting above comment and given 1mg of ativan for her anxiety at 1334. Pt then went on to carry out distracting activities some dancing to music and craft activities and appeared less fearful and distressed. Pt coming to staff at 1755 stating she was having racing fearful thoughts about welfare of her mother and her sons because she could not reach them on the phone. Pt requested to take zydis rather than ativan to try and stop ruminations and fears and given at 1755. Pt appeared more controlled and less fearful after that. P;CNCP
[2016-12-31] MEDS: Divalproex (QD) 500 mg ER24 Tablet PO SCH (20:16)
[2016-12-31] MEDS: diphenhydrAMINE 25 mg Capsule PO PRN (22:09)
--- NOTE | 2017-01-01 02:42 | NUR ---
Nursing, [facility] shift Patient visible on unit, sitting in the group room painting arts and crafts at beginning of shift. Became tearful when discussing her two children; states: "I miss them, and being here is tough." Provided listening support until the tears ceased. Ate HS snack. Conversating with select peers. Remained in craft room until bedtime. PRN Ativan and Benadryl given @ HS, then slept consistently thru night. Continue with Q15 min safety and room checks thru the NOC.
[2017-01-01] MEDS: diphenhydrAMINE 25 mg Capsule PO SCH ×2 (09:50→20:06)
--- NOTE | 2017-01-01 12:11 | PCM.PNPSY ---
Subjective Date of Service Jan 01, 2017 Subjective I spent 30 minutes both reviewing treatment plan with our clinical team, interviewing the patient and providing supportive/educational psychotherapy. I spent more than 50% of the time counseling the patient. I reviewed the treatment plan with the patient and discussed options available including the potential risks, benefits and side effects. Sugar repeated feeling improvement in thought organization and mood stability. Staff reports that she has been tearful and emotionally labile at times but has also been more active and is participating in a more substantial way in one-to- one unit and group activities. She slept well and denies psychotic symptoms review except for some paranoia about her ex- in the care of her children. She continues to have marked symptoms of emotional lability fearfulness and a depressed mood. She denies medication side effects. Mental Status Exam Appearance: Neat/well groomed Attitude: Pleasant, Cooperative Behavior: Overtly anxious, Tearful Affect: Labile Mood: Dysthymic, Anxious Thought Process/Associations: Logical/Sequential, Goal Directed Speech Production: Normal Speech Rate: Normal Speech Articulation: Normal Thought Content: Negativistic, Somatic preoccupation Danger to Self/Suicidal Ideati: None Danger to Others: None Delusions: Paranoid (Endorses) Consciousness: Hyper-vigilant Orientation: Person, Place, Date, Situation Memory: Grossly Intact Estimate Intellectual Function: Average Basis for IQ estimate: Word use/vocabulary, Educational history Attention/Concentration & Cogn: Impaired Insight: Good Judgement: Limited Mental Health Plan The patient is a 31-year-old, with four prior inpatient hospitalizations for depression and psychosis. Her current presentation is similar to her presentation in 2012, where she presented as mute and with auditory hallucinations. She has a prior diagnosis of posttraumatic stress disorder and major depression. At the time of admission, the patient had stopped all medications and was labile with disorganized thoughts. Client's SSRI apparently was stopped for concern about seizures. There was a report of a seizure 2 days prior to admission. The patient had a neurology consult, MRI, and CT scan at [facility] and was recommended to start Keppra however she could not tolerate this medication and was placed on Depakote. She has remained seizure-free since admission. The patient was restarted on fluoxetine and has so far had no side effects. She she has also been treated with olanzapine 5 mg nightly and clonazepam 0.5 mg twice daily and appeared to be slowly responding to treatment. Today, Sugar reports her symptoms are improving with no medication side effect complaints and she states she is no longer experiencing thought broadcasting, or negative self-talk. She was active and engaged in the session today. If she continues to improve I would anticipate that she would be okay for discharge sometimes towards the end of this week. [place] I. 1. Major depressive disorder with psychosis. 2. Posttraumatic stress disorder. 3. Cannabis use disorder [place] II. Defer. [place] III. Rule out recent seizure x2 reported by mother on December 15, 2016. [place] IV. Unknown. [place] V. GAF 35 Treatments Patient is being provided with a high degree of safety through our unit structure and active adult engagement provided by our mental health professionals, mental health technicians, psychiatric nurses and myself. We are focusing on developing improved coping skills and identifying stressors that may have led to current episode. We will attempt to: * Integrate into therapeutic groups, milieu and individual therapy. * Maintain in a closely monitored and structured unit * Provide low-stimulation environment * Obtain collateral data to assist in treatment planning * Assess degree of lability of affect and impulse control * Complete safety plan * Decrease frequency of relapse and need for re-hospitalization * Denies thoughts of harm to self and/or others * Establish a consistent sleep pattern * Medication effective in stabilization of mood and/or thought process * Reduce the risk of imminent harm to self and/or others by providing a safe environment * Tolerates medication without side effects * Patient will be on the following psychiatric medications: Fluoxetine 30 mg daily Zyprexa 10 nightly Klonopin 0.5 daily Depakote ER 500 nightly Trazodone at 50 nightly Education: Educate patient about recreational drug use as an etiology Educate about metabolic etiologies related to obesity Patient's legal status Paperwork filed for 90 day MRO, patient's family has requested 90LRO and will supervise patient on discharge.e Anticipated number of hospital days to achieve above goals: 7 Disposition: Home Lior Velarde MD Jan 01, 2017 12:11
--- NOTE | 2017-01-01 12:55 | NUR ---
Nursing Dayshift: S: "I really miss my kids.' O: Patient tearful when discussing her children. Has been working on a puzzle today in the dining room. States she does not know "what's really going on". Encouraged patient to journal thoughts and feelings. Has been out of her room much of the shift. Eating well at meals. Anxiety and depression "pretty high". Denies harmful thoughts and hallucinations. A: Somewhat labile. Approachable. Social with select peers. P: CPOC. Monitor mood and behavior.
--- NOTE | 2017-01-01 16:13 | NUR ---
Surgical Clinical Reviewer/Counselor S:"I've got racing thoughts." O: Patient denies any SI or HI, no AVH, stated her anxiety is up and down and her depression "depends on what's going on." A: Patient is paranoid and disorganized. Tangential and labile. Has been on the unit working on a puzzle. Tearful and hard to redirect at times. P: Follow care plan and coordinate with outpatient providers.
[2017-01-01] MEDS: LORazepam 1 mg Tablet PO PRN (18:28)
[2017-01-01 18:49] VITALS: BP 97/65; PULSE 65; RESP 15
[2017-01-01] MEDS: Divalproex (QD) 500 mg ER24 Tablet PO SCH (20:07)
[2017-01-01] MEDS ORDERED: Magnesium Hydroxide 10 mL Oral Concentration ONE (21:55)
[2017-01-01] MEDS: diphenhydrAMINE 25 mg Capsule PO PRN (22:02)
--- NOTE | 2017-01-02 02:25 | NUR ---
Observations 1900 to 0700 Pt attended and participated in wrap up group. Pt ate a snack. Mood was rated a 6. Pt had a visitor during visiting hours and spent free time working on a puzzle with a peer. Pt is easily tearful when told she can not have food in room/ or gel pen in room. Pt is soft spoken spoken with a sad affect. Pt maintained behavioral control. Pt appeared asleep at 2230 and has remained asleep. Pt respirations were observed when asleep. Staff completed 15 min close observations as ordered.
--- NOTE | 2017-01-02 04:49 | NUR ---
Nursing Noc Patient noted regain emotional control this shift. Patient was tearful and anxious at end of visiting time when visiting mother left, but unlike previous emotional break downs patient was able to regain control after just two minutes and was noted to go and work on a puzzle. Patients speak is still latent and very low in volume. Pt noted to be asleep during Q15 minute safety checks at 2230 and has remained asleep throughout the rest of the shift. Continuing to monitor mood, behavior and emotional state. CP
[2017-01-02] MEDS: diphenhydrAMINE 25 mg Capsule PO SCH ×2 (09:45→20:58)
--- NOTE | 2017-01-02 09:55 | NUR ---
Medications Pt slept in and received morning medications and breakfast late this morning.
[2017-01-02 11:00] VITALS: BP 109/67; PULSE 84
--- NOTE | 2017-01-02 13:23 | PCM.PNPSY ---
Subjective Date of Service Jan 02, 2017 Subjective I spent 30 minutes both reviewing treatment plan with our clinical team, interviewing the patient and providing supportive/educational psychotherapy. I spent more than 50% of the time counseling the patient. I reviewed the treatment plan with the patient and discussed options available including the potential risks, benefits and side effects. Sugar repeated feeling continued improvement in thought organization and mood stability. Staff reports that she has been intermittently tearful and emotionally labile but has also been more active and is participating in a more substantial way in one-to-one unit and group activities. She slept well and denies psychotic symptoms review except for some paranoia about her ex- in the care of her children. She continues to have marked symptoms of emotional lability fearfulness and a depressed mood. She denies medication side effects. Mental Status Exam Vital Signs Vital Signs Date Time Temp Pulse Resp B/P Pulse Ox O2 Delivery O2 Flow Rate FiO2 01/02/17 11:00 35.9 84 109/67 Appearance: Neat/well groomed Attitude: Pleasant, Cooperative Behavior: Overtly anxious, Tearful Affect: Labile Mood: Dysthymic, Anxious Thought Process/Associations: Logical/Sequential, Goal Directed Speech Production: Normal Speech Rate: Normal Speech Articulation: Normal Thought Content: Negativistic, Somatic preoccupation Danger to Self/Suicidal Ideati: None Danger to Others: None Delusions: Paranoid (Endorses) Consciousness: Hyper-vigilant Orientation: Person, Place, Date, Situation Memory: Grossly Intact Estimate Intellectual Function: Average Basis for IQ estimate: Word use/vocabulary, Educational history Attention/Concentration & Cogn: Impaired Insight: Good Judgement: Limited Mental Health Plan The patient is a 31-year-old, with four prior inpatient hospitalizations for depression and psychosis. Her current presentation is similar to her presentation in 2012, where she presented as mute and with auditory hallucinations. She has a prior diagnosis of posttraumatic stress disorder and major depression. At the time of admission, the patient had stopped all medications and was labile with disorganized thoughts. Client's SSRI apparently was stopped for concern about seizures. There was a report of a seizure 2 days prior to admission. The patient had a neurology consult, MRI, and CT scan at [facility] and was recommended to start Keppra however she could not tolerate this medication and was placed on Depakote. She has remained seizure-free since admission. The patient was restarted on fluoxetine and has so far had no side effects. She she has also been treated with olanzapine 5 mg nightly and clonazepam 0.5 mg twice daily and appeared to be slowly responding to treatment. Today, Sugar reports her symptoms are improving with no medication side effect complaints and she states she is no longer experiencing thought broadcasting, or negative self-talk. She was active and engaged in the session today. If she continues to improve I would anticipate that she would be okay for discharge sometimes towards the end of this week. [place] I. 1. Major depressive disorder with psychosis. 2. Posttraumatic stress disorder. 3. Cannabis use disorder [place] II. Defer. [place] III. Rule out recent seizure x2 reported by mother on December 15, 2016. [place] IV. Unknown. [place] V. GAF 35 Treatments Patient is being provided with a high degree of safety through our unit structure and active adult engagement provided by our mental health professionals, mental health technicians, psychiatric nurses and myself. We are focusing on developing improved coping skills and identifying stressors that may have led to current episode. We will attempt to: * Integrate into therapeutic groups, milieu and individual therapy. * Maintain in a closely monitored and structured unit * Provide low-stimulation environment * Obtain collateral data to assist in treatment planning * Assess degree of lability of affect and impulse control * Complete safety plan * Decrease frequency of relapse and need for re-hospitalization * Denies thoughts of harm to self and/or others * Establish a consistent sleep pattern * Medication effective in stabilization of mood and/or thought process * Reduce the risk of imminent harm to self and/or others by providing a safe environment * Tolerates medication without side effects * Patient will be on the following psychiatric medications: Fluoxetine 30 mg daily Zyprexa 10 nightly Klonopin 0.5 daily Depakote ER 500 nightly Trazodone at 50 nightly Education: Educate patient about recreational drug use as an etiology Educate about metabolic etiologies related to obesity Patient's legal status Paperwork filed for 90 day MRO, patient's family has requested 90LRO and will supervise patient on discharge.e Anticipated number of hospital days to achieve above goals: 7 Disposition: Home Lior Velarde MD Jan 02, 2017 13:23
--- NOTE | 2017-01-02 13:42 | NUR ---
Health Safety Instructor/Counselor S:"Things are pretty rough right now." O: Patient denies any SI or HI, no AVH, rated her anxiety at "I don't know", and doesn't know if she's depressed. A: Patient is paranoid and disorganized. Tangential and labile. Tearful and hard to redirect at times. Has been coloring in the group room or working on a puzzle. P: Follow care plan and coordinate with outpatient providers.
--- NOTE | 2017-01-02 14:31 | NUR ---
Nursing Dayshift: S: "Okay. I won't need any help moving." O: Patient cooperative with moving to a double room with another patient. Has been out of her room more today. Eating well at meals. Anxiety and depression "medium". Denies harmful thoughts and hallucinations. Noted to be a little teary this AM during interaction. A: Tearful episodes. Compliant. P: CPOC. Monitor mood and behavior.
--- NOTE | 2017-01-02 20:55 | NUR ---
Obs Dayshift Pt was working with staff at the start of the moving process, then later became tearful and questioning as to why she was the one who had to move w/ a room mate. Calling mom and questions multi staff after mom came for visitation. Pt stated that she was very anxious, and had racing thoughts. Pt spent most of the evening in the GR writing and coloring. Pt received pictures of kids this evening, smiled often and carried them around w/ her, stating that she needs to work to get back to them. Pt had court today, very restless and indecisive regarding if she should or should not go to court. Then after crying and stating that she shouldn't have gone. Good meals, Good ADL's
[2017-01-02] MEDS: Divalproex (QD) 500 mg ER24 Tablet PO SCH (20:58)
--- NOTE | 2017-01-03 05:07 | NUR ---
Nursing Noc Pt maintained emotional control this shift. Noted to spend evening with mother and then working on an art project. Patient talkative with writer editor and other patients. Enjoyed showing pictures of children and expressed sadness that she is in here and not able to care for children at this time. Continuing to monitor mood behavior and emotional state. Q15 minute safety checks performed through the night as directed. Pt noted to be asleep at 0000 and remained asleep throughout the night. KENCP
[2017-01-03] MEDS: diphenhydrAMINE 25 mg Capsule PO SCH ×2 (08:12→21:13)
[2017-01-03 13:41] VITALS: RESP 16
--- NOTE | 2017-01-03 14:27 | PCM.PNPSY ---
Subjective Date of Service Jan 03, 2017 Subjective I spent 30 minutes both reviewing treatment plan with our clinical team, interviewing the patient and providing supportive/educational psychotherapy. I spent more than 50% of the time counseling the patient. I reviewed the treatment plan with the patient and discussed options available including the potential risks, benefits and side effects. Sugar repeated feeling continued improvement in thought organization and mood stability. Staff reports that she continues to be intermittently tearful and emotionally labile but has also been more active and is participating in a more substantial way in one-to-one unit and group activities. She slept well and denies psychotic symptoms review except for some paranoia about her ex- in the care of her children. She continues to have marked symptoms of emotional lability fearfulness and a depressed mood. She denies medication side effects. Mental Status Exam Vital Signs Vital Signs Date Time Temp Pulse Resp B/P Pulse Ox O2 Delivery O2 Flow Rate FiO2 01/03/17 13:41 36.7 16 Appearance: Neat/well groomed Attitude: Pleasant, Cooperative Behavior: No unusual behavior, Tearful Affect: Well Modulated/Appropriate Mood: Dysthymic, Anxious Thought Process/Associations: Logical/Sequential, Goal Directed Speech Production: Normal Speech Rate: Normal Speech Articulation: Normal Thought Content: Negativistic, Somatic preoccupation Danger to Self/Suicidal Ideati: None Danger to Others: None Delusions: Paranoid (Endorses) Consciousness: Alert Orientation: Person, Place, Date, Situation Memory: Grossly Intact Estimate Intellectual Function: Average Basis for IQ estimate: Word use/vocabulary, Educational history Attention/Concentration & Cogn: Grossly Intact Insight: Good Judgement: Limited Mental Health Plan The patient is a 31-year-old, with four prior inpatient hospitalizations for depression and psychosis. Her current presentation is similar to her presentation in 2012, where she presented as mute and with auditory hallucinations. She has a prior diagnosis of posttraumatic stress disorder and major depression. At the time of admission, the patient had stopped all medications and was labile with disorganized thoughts. Client's SSRI apparently was stopped for concern about seizures. There was a report of a seizure 2 days prior to admission. The patient had a neurology consult, MRI, and CT scan at [facility] and was recommended to start Keppra however she could not tolerate this medication and was placed on Depakote. She has remained seizure-free since admission. The patient was restarted on fluoxetine and has so far had no side effects. She she has also been treated with olanzapine 5 mg nightly and clonazepam 0.5 mg twice daily and appeared to be slowly responding to treatment. Today, Sugar repeats that her symptoms are improving with no medication side effect complaints and she states she is no longer experiencing thought broadcasting, or negative self-talk. She was active and engaged in the session today. If she continues to improve I would anticipate that she would be okay for discharge in 72 hours. [place] I. 1. Major depressive disorder with psychosis. 2. Posttraumatic stress disorder. 3. Cannabis use disorder [place] II. Defer. [place] III. Rule out recent seizure x2 reported by mother on December 15, 2016. [place] IV. Unknown. [place] V. GAF 40 Treatments Patient is being provided with a high degree of safety through our unit structure and active adult engagement provided by our mental health professionals, mental health technicians, psychiatric nurses and myself. We are focusing on developing improved coping skills and identifying stressors that may have led to current episode. We will attempt to: * Integrate into therapeutic groups, milieu and individual therapy. * Maintain in a closely monitored and structured unit * Provide low-stimulation environment * Obtain collateral data to assist in treatment planning * Assess degree of lability of affect and impulse control * Complete safety plan * Decrease frequency of relapse and need for re-hospitalization * Denies thoughts of harm to self and/or others * Establish a consistent sleep pattern * Medication effective in stabilization of mood and/or thought process * Reduce the risk of imminent harm to self and/or others by providing a safe environment * Tolerates medication without side effects * Patient will be on the following psychiatric medications: Fluoxetine 30 mg daily Zyprexa 10 nightly Klonopin 0.5 daily Depakote ER 500 nightly Trazodone at 50 nightly Education: Educate patient about recreational drug use as an etiology Educate about metabolic etiologies related to obesity Patient's legal status Paperwork filed for 90 day MRO, patient's family has requested 90LRO and will supervise patient on discharge Anticipated number of hospital days to achieve above goals: Sunday if client continues to improve up Disposition: Home Lior Velarde MD Jan 03, 2017 14:27
[2017-01-03] MEDS: LORazepam 1 mg Tablet PO PRN (14:42)
--- NOTE | 2017-01-03 18:29 | NUR ---
[place] Setter/Counselor: S: "Good morning." O: Patient slept 5.25 hours last night per staff. Patient denies S/I and H/I. She also denies auditory and visual hallucinations. "I'm anxious and depressed because I can't see my ." A: Patient is cooperative, pleasant, tearful, dysthymic, anxious, paranoid, limited judgment. P: Follow the care plan, coordinate with out-patient providers.
--- NOTE | 2017-01-03 18:44 | NUR ---
[facility] Day Shift Pt affect and behavior mostly unchanged from previous shifts. Pt maintained behavioral control throughout the shift. Pt affect appears flat, sad (though somewhat brighter than noted on previous shift). Pt spends most of the shift resting in her room or engaging in unit activities throughout the shift. Pt is very quiet when engaged with staff and peers, and pt continues to appear uncomfortable engaging with staff and peers for extended periods of time (though less so than noted on previous shifts). Pt had a mild breakdown in the afternoon, crying and having trouble breathing in the group room. Pt did not attend community meeting, but did attend group activities throughout the shift. Pt attended all meals and ate approx 100% of all meals.
--- NOTE | 2017-01-03 19:07 | NUR ---
[id number] nurs Pt reports that ativan received at 1442 seemed helpful .Pt wondering if benadryl causing some hand shakiness,. Pt still stating anxious re. family being safe. Pt quickly becomes tearful, able to spend time working on crafts and appearing calmer at those times. Pt does exhibit some tremulousness of hands. Pt states wants to be more independent states still has difficulty with small decisions like what to eat. Does not interact with others ,get anxious with mtgs with staff, states ativan helps. P:CNCP
[2017-01-03] MEDS: Divalproex (QD) 500 mg ER24 Tablet PO SCH (21:13)
--- NOTE | 2017-01-04 05:23 | NUR ---
nursing, nights, 11-7 s/o- has appeared to sleep after 0 during q 15 minute assessments. a- no apparent distress. p- monitor behavior/emotional state, quality, times and amount of sleep, use and effect of medication. kimberlee
[2017-01-04] MEDS: diphenhydrAMINE 25 mg Capsule PO SCH ×2 (08:07→20:46)
[2017-01-04 10:30] VITALS: BP 108/76; PULSE 84; RESP 16
--- NOTE | 2017-01-04 13:40 | PCM.PNPSY ---
Subjective Date of Service Jan 04, 2017 Subjective I spent 30 minutes both reviewing treatment plan with our clinical team, interviewing the patient and providing supportive/educational psychotherapy. I spent more than 50% of the time counseling the patient. I reviewed the treatment plan with the patient and discussed options available including the potential risks, benefits and side effects. Sugar repeated feeling continued improvement in thought organization and mood stability. Staff reports that she continues to be intermittently tearful and emotionally labile but has also been more active and is participating in a more substantial way in one-to-one unit and group activities. She slept well and denies psychotic symptoms review. She has had a decrease of emotional lability and an improved mood. She denies medication side effects. Mental Status Exam Appearance: Neat/well groomed Attitude: Pleasant, Cooperative Behavior: No unusual behavior, Tearful Affect: Well Modulated/Appropriate Mood: Dysthymic, Anxious Thought Process/Associations: Logical/Sequential, Goal Directed Speech Production: Normal Speech Rate: Normal Speech Articulation: Normal Thought Content: Negativistic Danger to Self/Suicidal Ideati: None Danger to Others: None Consciousness: Alert Orientation: Person, Place, Date, Situation Memory: Grossly Intact Estimate Intellectual Function: Average Basis for IQ estimate: Word use/vocabulary, Educational history Attention/Concentration & Cogn: Grossly Intact Insight: Good Judgement: Good Mental Health Plan The patient is a 31-year-old, with four prior inpatient hospitalizations for depression and psychosis. Her current presentation is similar to her presentation in 2011, where she presented as mute and with auditory hallucinations. She has a prior diagnosis of posttraumatic stress disorder and major depression. At the time of admission, the patient had stopped all medications and was labile with disorganized thoughts. Client's SSRI apparently was stopped for concern about seizures. There was a report of a seizure 2 days prior to admission. The patient had a neurology consult, MRI, and CT scan at [facility] and was recommended to start Keppra however she could not tolerate this medication and was placed on Depakote. She has remained seizure-free since admission. The patient was restarted on fluoxetine and has so far had no side effects. She she has also been treated with olanzapine 5 mg nightly and clonazepam 0.5 mg twice daily and appeared to be slowly responding to treatment. Today, Sugar repeats that her symptoms are improving with no medication side effect complaints and she states she is no longer experiencing thought broadcasting, or negative self-talk. She was active and engaged in the session today. If she continues to improve I would anticipate that she would be okay for discharge in am. [place] I. 1. Major depressive disorder with psychosis. 2. Posttraumatic stress disorder. 3. Cannabis use disorder [place] II. Defer. [place] III. Rule out recent seizure x2 reported by mother on December 15, 2016. [place] IV. Unknown. [place] V. GAF 40 Treatments Patient is being provided with a high degree of safety through our unit structure and active adult engagement provided by our mental health professionals, mental health technicians, psychiatric nurses and myself. We are focusing on developing improved coping skills and identifying stressors that may have led to current episode. We will attempt to: * Integrate into therapeutic groups, milieu and individual therapy. * Maintain in a closely monitored and structured unit * Provide low-stimulation environment * Obtain collateral data to assist in treatment planning * Assess degree of lability of affect and impulse control * Complete safety plan * Decrease frequency of relapse and need for re-hospitalization * Denies thoughts of harm to self and/or others * Establish a consistent sleep pattern * Medication effective in stabilization of mood and/or thought process * Reduce the risk of imminent harm to self and/or others by providing a safe environment * Tolerates medication without side effects * Patient will be on the following psychiatric medications: Fluoxetine 30 mg daily Zyprexa 10 nightly Klonopin 0.5 daily Depakote ER 500 nightly Trazodone at 50 nightly Education: Educate patient about recreational drug use as an etiology Educate about metabolic etiologies related to obesity Patient's legal status Paperwork filed for 90 day MRO, patient's family has requested 90LRO and will supervise patient on discharge Anticipated number of hospital days to achieve above goals: Sunday if client continues to improve up Disposition: Home Lior Velarde MD Jan 04, 2017 13:40
--- NOTE | 2017-01-04 15:08 | NUR ---
Nursing Days Pt has been visible on the unit, participating in activities. Eating all meals and taking medications as ordered. No tearfulness or overt anxiety today. Continue to monitor and support as needed.
[2017-01-04] MEDS: LORazepam 1 mg Tablet PO PRN (16:12)
--- NOTE | 2017-01-04 19:09 | NUR ---
Observations 0900 - 0 Pt affect and mood remains the same as previous shifts. flat, anxious, sullen, guarded and withdrawn Pt was pleasant, polite and cooperative when approached. Pt maintained behavior throughout the shift. Pt continues to be unsocial and keeps to herself when out of her room. Pt attended meals in D.R. and ate approximately 75% of her meals. Pt ate a snack. Pt declined to come out for community meeting. Pt did a little bit of coloring in the group room. Pt went out on patio with staff and peers to get some fresh air. Pt used the phone a couple of times. Pt was observed every 15 minutes through the shift as ordered.
[2017-01-04] MEDS: Divalproex (QD) 500 mg ER24 Tablet PO SCH (20:45)
--- NOTE | 2017-01-04 22:38 | NUR ---
Nurses Note Evening Patient has been social tonight with select peers. She spoke openly about her discharge plans and family concerns. She denied heightened anxiety, depression or feelings of self harm. Reviewed patients' medications and importance of continued compliance.Will maintain q 15min. checks for safety and support. Addendum: 01/04/17 at 2249 by SOHA OWENS RN Amended: Links added.
--- NOTE | 2017-01-05 05:14 | NUR ---
nursing, nights, 11-7 s/o- has appeared to sleep after 2244 during q 15 minute assessments. a- no apparent distress. p- monitor behavior/emotional state, quality, times and amount of sleep, use and effect of medication. kimberlee
[2017-01-05] MEDS: diphenhydrAMINE 25 mg Capsule PO SCH (09:20)
[2017-01-05] MEDS ORDERED: FLUO10CA20 PO (10:31)
[2017-01-05] MEDS ORDERED: OLAN5TAB PO (10:31)
[2017-01-05] MEDS ORDERED: DIVA500T14 PO (10:31)
[2017-01-05] MEDS ORDERED: TRAZ-115 PO (10:31)
[2017-01-05] MEDS ORDERED: KLO5T PO (10:31)
--- NOTE | 2017-01-05 10:34 | PCM.DIMED ---
Discharge Instructions Date of Service Jan 05, 2017 Dates of Hospitalization Dec 17, 2016 at 12:33 Discharge Diagnosis Discharge Diagnosis [place] I. 1. Major depressive disorder with psychosis. 2. Posttraumatic stress disorder. 3. Cannabis use disorder [place] II. Defer. [place] III. Rule out recent seizure x2 reported by mother on December 15, 2016. [place] IV. Unknown. [place] V. GAF 40 Medication Instructions Additional med instructions I Strongly encouraged patient to follow up with outpatient care: 1-Recommended patient takes medication as prescribed and not alter this unless under the direct care of a provider. Fluoxetine 30 mg daily Zyprexa 10 nightly Klonopin 0.5 daily Depakote ER 500 nightly Trazodone at 50 nightly 2-Recommend client refrain from recreational drugs and alcohol while taking psychiatric medications. 3-Recommend client start a 12 step program to deal with issues of substance abuse. 4-Recommend patient attempt to find a therapist or group to deal with interpersonal relationship conflicts Diet Discharge Diet: No restrictions Activity Discharge Activity: No restrictions Call your provider Call your provider for: Fever or Chills Patient Instructions Follow-up plan Plan to follow-up with [facility] in [place] for therapy and to follow up for medication management with Autumn Crouch her primary care. Appointments to be scheduled within the next 2 weeks Follow-up with PCP in: 2 weeks Lior Velarde MD Jan 05, 2017 10:34
[2017-01-05 11:13] VITALS: BP 126/78; PULSE 105; RESP 14
--- NOTE | 2017-01-05 11:52 | NUR ---
nursing: Pt has been working on discharge: Reviewed all discharge medications, and instructions and appointments with pt and she verbalizes understanding. Her belongings have been inventoried and and her own prescriptions returned. Discharged to her mother @ [phone]
--- NOTE | 2017-01-05 19:30 | NUR ---
Plate Developer/Counselor: S: "I'm trying to focus on the future." O: Patient slept 7.25 hours last night per staff. Patient denies S/I and H/I. She also denies auditory and visual hallucinations. Depression and anxiety were not rated. Patient goes on to state, "I'm all for helping others. I'm worried about pulling my mother and brother into my problems." Out-patient appointments: GLENDY Camarillo, Primary Care Physician, 01/09/17 at 11:30am; [facility] 01/11/17 at 8:30am; Dr. Farideh Bedoya, Neurology, 01/30/17 at 10:00am. A: Patient is cooperative, pleasant, tearful, dysthymic, anxious, future oriented. P: Follow the care plan, coordinate with out-patient providers.
--- NOTE | 2017-01-05 20:53 | DIS ---
[address] [address] DISCHARGE SUMMARY PATIENT: ALANIS BECERRA : 1985 MR#: [id number] ADMIT: 12/17/2016 JOB ID: [id number] DIS: 01/05/2017 IDENTIFICATION: The patient, a 31-year-old, white female, currently staying at her mother's. She is , has two children. The family lives in [place]. REASON FOR ADMISSION: Client presented to the emergency department complaining of severe anxiety, depression, and was admitted as gravely disabled. SUMMARY OF PRESENT ILLNESS: Client is a 31-year-old female who has had four different inpatient admissions for depression and psychosis. Her presentation now is almost identical to the presentation in 2011, where she presented with psychotic symptoms, mute and auditory hallucinations. She was given a diagnosis of PTSD and major depression. She has recently stopped all medications and at the time of admission, was in a severely labile state with disorganized and nonlinear thought. She was admitted for stabilization and treatment. HOSPITAL COURSE: Client was admitted to our unit and was provided with a high degree of safety through the structure and active adult engagement she received here. We had her participate in one-to-one unit and group activities focused on improving coping skills, reality based thinking and coming up with a treatment plan so she could continue to work as an outpatient. She initially had a very difficult time participating in anything. The first week she was essentially mute and unable to talk. This last week, she has had significant improvement and although has periods of time of tearfulness is able to attend to activities of daily living, is motivated for treatment, and is anxious to get back into a life with her family, her children, and her career. She plans to restart going back to school. Client has been using marijuana instead of her regular medications, Depakote, Klonopin, Zyprexa, and Prozac. We talked at length about this and she is intending to refrain from recreational drugs, at least while taking psychiatric medications. She tolerated reintroduction of the above four medications well. She showed slow but gradual process throughout her stay here. Valproate level on December 28, 2016 was one was 116. Client is motivated for treatment. Has a clear sensorium today and I am dropping her hold and discharging her home to her family's care. DISCHARGE MEDICATIONS: 1. Prozac 30 daily. 2. Zyprexa 10 h.s. 3. Klonopin 0.5 h.s. 4. Depakote ER 500 h.s. 5. Trazodone 50 h.s. DISCHARGE DIAGNOSIS: [place] I. 1. Major depressive disorder with psychosis, currently in early remission. 2. Posttraumatic stress disorder. 3. Cannabis use disorder. [place] II. None. [place] III. Reported seizure by mother on December 15, 2016. No seizure activity noticed during her hospitalization. [place] IV. Moderate. [place] V. Current Global Assessment of Functioning equal to 45. DISCHARGE FOLLOWUP: Client to follow up with [facility] in [place] for therapy. Client to follow up with [facility] in [facility]. CONDITION ON DISCHARGE: Good. PROGNOSIS: Good. MENTAL STATUS EXAM: Neatly dressed. Sitting calmly with good eye contact. Her behavior was calm. Attitude was animated. Speech was normal rate and rhythm. Mood: Euthymic with affect congruent with some tearfulness when she talked about her children or talked about stress prior to admission. Thought process: Client is able to relate a coherent history, coherent, logical and spontaneous. Thought content: Themes of future planning, how she is going to take care of herself and her boys. Denied auditory hallucinations or suicidal ideation. Alert and oriented to person, place, and date and memory. Immediate short and long-term attention, concentration relatively normal. Insight and judgment good. Impulse control: Highly contained. Reality testing intact. Competence to handle current stressors: Has appeared to be in improved from baseline.
== END 2017-01-05 12:15 | disposition home or self-care (01) | DRG 885 ==
LOC: SED 16:29 → MHC 12-17 12:33
PROVIDERS: ADMIT Psychiatry & Neurology Psychiatry; ATTEND Psychiatry & Neurology Psychiatry
DX: F33.3 Major depressive disorder, recurrent, severe with psychotic symptoms (principal); F12.10 Cannabis abuse, uncomplicated; F43.10 Post-traumatic stress disorder, unspecified